=== PATIENT | male | born 1990 | race Caucasian/White ===

== ENCOUNTER 2018-01-21 13:51 | Emergency (ER) | payer BC, SELFPAY ==
[2018-01-21 13:52] VITALS: BP 134/92; PULSE 89; RESP 16; TEMP 36.4; O2SAT 97; BMI 37.5
--- NOTE | 2018-01-21 14:23 | RAD_ITS ---
STUDY: X-RAY CHEST REASON FOR EXAM: Male, 27 years old. Cough TECHNIQUE: Frontal and lateral views of the chest were obtained. COMPARISON: Prior comparison studies are not available for review at this time. FINDINGS: The lungs are adequately aerated. There are no focal airspace opacities. There is no demonstrated pleural abnormality. The cardiac silhouette is normal in size. The mediastinum and hilar regions are unremarkable. Normal visualized pulmonary arteries. Normal visualized aortic arch and descending thoracic aorta. The thoracic spine is unremarkable. The visualized ribs, clavicles, and shoulders are unremarkable. There is no demonstrated abnormality of the visualized upper abdomen. RAD/Chest PA and Lateral IMPRESSION: There is no evidence of focal consolidation or pleural effusion. Electronically Signed: Frannie Hagen MD at 16:09 EST Tel Direct: [phone], Service support ,
--- NOTE | 2018-01-21 15:10 | ED.VISSUMM ---
- ER Visit Summary Date of Service: 01/21/18 Chief Complaint: Cough History of Present Illness: The patient is a 27 M who reports he has a cough that began approximately 1 week ago. It is productive yellow sputum with streaks of blood. He also reports he has nasal congestion and a small amount of blood when he blows his nose. He has had subjective fever, chills, and cold sweats. He has bilateral ear pain that is 3 out of 10 severity. He has a sore throat that is 8 out of 10 in severity. Reports he has had mild shortness of breath and has been wheezing. He is not have an inhaler, but he has had to use an inhaler in the past. He denies any myalgias or headache. Physical Examination: Vitals: Stable. Afebrile. General: Well-nourished and well-developed. Head: Normocephalic atraumatic. HEENT: 1+ tonsillar enlargement bilaterally without exudate. Neck: Supple, no lymphadenopathy. No JVD. Nontender. Cardiovascular: Regular rate and rhythm. No murmurs. Respiratory: No respiratory distress. Clear to auscultation bilaterally. Abdominal: Soft, nontender, nondistended, normal bowel sounds. No guarding, rebound, or peritoneal signs. Back: Nontender. Extremities: Nontender, no edema. Skin: Normal color, no rash. Neurologic: Alert and oriented ?3. Cranial nerves II through XII are intact. Normal strength and sensation. Psych: Normal affect. Test Results: Chest x-ray is normal. Emergency Department Course and Treatment: Patient is resting comfortably. Treatment Plan: He will be discharged with an albuterol MDI and symptomatic care. Instructed to follow-up with his primary care physician 1 week if not improving. Disposition: To home in improved and stable condition. Impression: 1. URI with bronchospasm. 2. Tobacco abuse. This note was generated with [employer] dictation software. It may contain incorrect words, spelling, and punctuation that were not noted in review of the chart prior to signing ED Disposition - Plan for ED Patient: Disposition: Home or Assisted Living Chief Complaint: General Illness Instructions: ED Upper Resp Infec No Abx Tx Prescriptions: Albuterol Inhaler [Ventolin Hfa] 1 - 2 puff INHALATION Q4H PRN PRN #1 inhaler PRN Reason: Wheezing Erythromycin Ophthalmic 1 applic EACH EYE TID #1 opth.tube Referrals: Doctor,Your [STAFF PHYSICIAN] - 1 Week if not improving
[2018-01-21 15:44] VITALS: PULSE 71; RESP 16; O2SAT 97
== END 2018-01-21 15:50 | disposition home or self-care (01) ==
PROVIDERS: Emergency Provider Emergency Medicine
DX: J06.9 Acute upper respiratory infection, unspecified (principal); J98.01 Acute bronchospasm; Z72.0 Tobacco use; Z82.5 Family history of asthma and other chronic lower respiratory diseases
CPT/HCPCS: 71046; 99282

== ENCOUNTER 2018-11-16 14:34 | Emergency (ER) | payer BC, SELFPAY ==
[2018-11-16 14:36] VITALS: BP 147/83; PULSE 93; RESP 16; TEMP 37.2; O2SAT 97; BMI 38.9
[2018-11-16] MEDS: 0.9% Normal Saline 1,000 ML 1000 ML IV (14:40)
--- NOTE | 2018-11-16 15:01 | RAD_ITS ---
STUDY: X-RAY CHEST REASON FOR EXAM: Male, 28 years old. Flu symptoms TECHNIQUE: Frontal and lateral views of the chest. COMPARISON: 01/21/2018. FINDINGS: The lungs are clear and expanded. There is no demonstrated pleural abnormality. Normal size heart. Normal mediastinum and horacio. Normal visualized pulmonary arteries. Normal visualized aortic arch and descending thoracic aorta. Normal visualized thoracic spine. Normal visualized ribs, clavicles, and shoulders. There is no demonstrated abnormality of the visualized soft tissue structures of the upper abdomen. RAD/Chest PA and Lateral IMPRESSION: Normal x-ray examination of the chest. Electronically Signed: Randy Bahena MD at 16:10 EST , Service support ,
--- NOTE | 2018-11-16 15:08 | ED.DCSUM_ITS ---
- ER Visit Summary Date of Service: 11/16/18 Chief Complaint: Fever, cough, nausea, vomiting, diarrhea History of Present Illness: The patient is a 28 M with congestion, cough, body aches, fever, and chills for the past 4 days. Today he reports nausea and vomiting. He has had diarrhea as well. He does have some posttussive emesis, but overall has dry cough. He reports fever up to 101.6 today. Past history is significant for asthma as a child but has not really been an issue as an adult. He has had pneumonia previously. He had his gallbladder out approximately a year ago. Physical Examination: Blood pressure is 147/83, temperature 99, heart rate 93, respiratory rate 16, pulse ox 97% on room air. Patient sitting upright in bed. He appears ill but no acute distress. He is nontoxic appearing. Head neck examination is grossly unremarkable. Heart is regular rate and rhythm. Lungs sounds with rales at the right lung. Abdomen is soft and nontender. Hypoactive bowel sounds are noted throughout. Lower extremity examination was no calf tenderness or edema. Test Results: Two-view chest x-ray is unremarkable. CBC is remarkable only for platelet count of 131,000. Chemistry studies normal. Influenza swab is negative. Emergency Department Course and Treatment: Patient is given IV fluids, Zofran, and Toradol. On repeat evaluation he is improved. He is able to tolerate ice chips at this time without difficulty. He will be given prescriptions for Toradol and Zofran at home. He will follow-up with his primary care physician in [place]. Treatment Plan: [] Disposition: Discharge Impression: Viral syndrome This note was generated with [employer] dictation software. It may contain incorrect words, spelling, and punctuation that were not noted in review of the chart prior to signing ED Disposition - Plan for ED Patient: Chief Complaint: General Illness Referrals: Care Physician,No Primary [Primary Care Provider] -
[2018-11-16 15:16] LABS: Absolute Lymphocyte Count 1.82 X10^3/ul (0.83-4.51); Absolute Neutrophil Count 2.8 X10^3/uL (2.0-7.7); Basophil# 0.05 X10^3/uL; Eosinophil# 0.09 X10^3/uL; Eosinophils% 1.7 % (0-5); Hematocrit 45.9 % (40-54); Hemoglobin 15.7 g/dl (13.0-16.5); Lymphocyte # 1.82 X10^3/ul (4.0); Lymphocyte % 35.3 % (19-41); Mean Corp Hgb Conc 34.2 g/gl (32-36); Mean Corpuscular Hgb 30.2 pg (27.0-32.0); Mean Corpuscular Volume 88.3 fL (80-94); Mean Platelet Vol. 10.3 fl (6.2-12.0); Monocyte% 7.8 % (0-10); Neutrophil # 2.79 X10^3/uL (2.7-7.7); POSITIVE COUNT NO; POSITIVE MORPHOLOGY NO; Platelet Count 131 K/mm3 (150-450); RBC Distribution Width CV 12.2 % (11.6-14.6); White Blood Count 5.2 K/mm3 (4.4-11.0)
[2018-11-16 15:30] LABS: Anion Gap 8 (5-15); BUN 10 mg/dL (7-18); BUN/Creat Ratio 10.8 RATIO (10-20); Calcium,Total 8.6 mg/dL (8.5-10.1); Chloride 102 mmol/L (98-107); Creatinine, Serum 0.92 mg/dL (0.70-1.30); EST Glomerular Filtration Rate 102 mL/min (>60); Est Glom Filt Rate - Afr Amer 123 mL/min (>60); Estimated Creatinine Clearance 140.32 ml/min; Glucose 91 mg/dL (74-106); Potassium 3.8 mmol/L (3.5-5.1); Sodium Level 135 mmol/L (136-145)
[2018-11-16] MEDS: Ondansetron 4 MG/2 ML Vial IV (15:53)
[2018-11-16] MEDS: Ketorolac 30 MG/ML Syringe IV (15:53)
[2018-11-16] MEDS: 0.9% Normal Saline 1,000 ML 150 ML IV (15:53)
--- NOTE | 2018-11-16 17:24 | ED.DEP ---
ED Disposition - Plan for ED Patient: Disposition: Home or Assisted Living Chief Complaint: General Illness Instructions: ED Viral Syndrome Prescriptions: Ondansetron [Zofran Odt] 4 mg PO Q8H PRN PRN #10 tablet PRN Reason: Nausea Ketorolac [Toradol] 10 mg PO Q6H PRN #20 tablet PRN Reason: Pain Additional Instructions: Follow-up with your physician as needed.
[2018-11-16 17:44] VITALS: BP 118/57; PULSE 68; RESP 16
== END 2018-11-16 17:44 | disposition home or self-care (01) ==
PROVIDERS: Emergency Provider Emergency Medicine
DX: B34.9 Viral infection, unspecified (principal); Z72.0 Tobacco use
CPT/HCPCS: 71046; 80048; 85025; 87804; 96361; 96374; 96375; 99283; J7030; A4216; J2405

== ENCOUNTER 2018-11-28 22:27 | Emergency (ER) | payer BC, SELFPAY ==
[2018-11-28 22:28] VITALS: BP 122/98; PULSE 111; RESP 14; TEMP 36.6; O2SAT 95; BMI 38.2
--- NOTE | 2018-11-29 00:25 | RAD_ITS ---
STUDY: X-RAY CHEST REASON FOR EXAM: Male, 28 years old. Cough. Concern for TB. 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 TECHNIQUE: Frontal and lateral views of the chest. COMPARISON: 11/16/2018. FINDINGS: The lungs are clear and expanded. There is no demonstrated pleural abnormality. Normal size heart. Normal mediastinum and horacio. Normal visualized pulmonary arteries. Normal visualized aortic arch and descending thoracic aorta. Normal visualized thoracic spine. Normal visualized ribs, clavicles, and shoulders. There is no demonstrated abnormality of the visualized soft tissue structures of the upper abdomen. RAD/Chest PA and Lateral IMPRESSION: Normal x-ray examination of the chest. No evidence for tuberculosis. Electronically Signed: Alfie Meyer MD at 1:05 EST , Service support ,
[2018-11-29 00:57] VITALS: BP 138/81; PULSE 92; PULSE 94; RESP 14; RESP 18; TEMP 36.6; O2SAT 95; O2SAT 97
[2018-11-29 00:59] VITALS: BP 138/81; PULSE 94; RESP 18; TEMP 36.6; O2SAT 97
--- NOTE | 2018-11-29 01:09 | ED.DCSUM_ITS ---
- ER Visit Summary Date of Service: 11/29/18 Chief Complaint: Cough and I just want to be on the safe side. History of Present Illness: The patient is a 28 M who presents with a cough. It is been present for 3-4 weeks. He did initially have a URI-like illness with congestion. His cough is nonproductive. He reports night sweats. He has had some diarrhea as well. He states I googled and scared myself. He is concerned that he may have tuberculosis. Physical Examination: Heart rate 111 vitals otherwise normal Moist mucous membranes Heart regular rate and rhythm on auscultation Lungs are clear without rales rhonchi or wheezes Abdomen is soft Test Results: Two-view chest x-ray is normal Emergency Department Course and Treatment: Patient was reassured. He was advised to follow-up as an outpatient. He understands to return for new or worsening symptoms. He was discharged. Treatment Plan: [] Disposition: Discharge Impression: Cough This note was generated with [employer] dictation software. It may contain incorrect words, spelling, and punctuation that were not noted in review of the chart prior to signing ED Disposition - Plan for ED Patient: Chief Complaint: General Illness Referrals: Care Physician,No Primary [Primary Care Provider] -
[2018-11-29 01:15] VITALS: BP 129/76; PULSE 92; RESP 18; O2SAT 99
== END 2018-11-29 01:33 | disposition home or self-care (01) ==
PROVIDERS: Emergency Provider Emergency Medicine
DX: R05 Cough (principal); Z72.0 Tobacco use
CPT/HCPCS: 71046; 99282

== ENCOUNTER 2019-09-07 21:25 | Emergency (ER) | payer BC, SELFPAY ==
[2019-09-07 21:26] VITALS: BP 149/111; BP 149/114; PULSE 112; RESP 18; TEMP 37.2; BMI 36.1
--- NOTE | 2019-09-07 22:57 | ED.DCSUM_ITS ---
- ER Visit Summary Date of Service: 09/07/19 Chief Complaint: Laceration right index finger History of Present Illness: The patient is a 29 M who presents with a laceration to the tip of his right index finger that occurred tonight. Patient states he was washing dishes when he reached into the sink and cut himself with a knife. Patient denies any paresthesias or weakness. Patient states the bleeding has been persistent. Patient states his last tetanus was between 5 and 10 years ago. Patient denies any other injuries. Physical Examination: Vital signs are stable except for mild tachycardia of 112. Patient was afebrile. Patient is in no acute distress. Skin is warm dry. There is a 1 cm full-thickness linear laceration over the tip of the right index finger. There is mild gapping of the wound margins. There is moderate bleeding. Sensation was intact to light touch in all digits. Capillary refill was less than 2 seconds in all digits. There is full range of motion of the MP, PIP, and DIP joints without difficulty. Emergency Department Course and Treatment: The right index finger was cleaned and anesthetized 1% plain lidocaine via digital block. The wound was irrigated with copious amounts of normal saline. The wound was closed with 2 simple interrupted #5-0 nylon sutures under sterile technique. Bacitracin dressing was applied. Patient tolerated the procedure well. Patient was instructed to follow-up with his primary care physician in 5 to 7 days for wound recheck and suture removal. Patient understood and was agreeable with the plan. All questions were answered. Disposition: Discharge home Impression: Right index finger laceration This note was generated with [employer] dictation software. It may contain incorrect words, spelling, and punctuation that were not noted in review of the chart prior to signing ED Disposition - Plan for ED Patient: Disposition: Home or Assisted Living Diagnosis: Laceration of right index finger Instructions: LACERATION, Hand Referrals: Care Physician,No Primary [Primary Care Provider] - Lit Drake DO [NON CLINICAL AFFILIATE] - 5 Days for suture removal
[2019-09-07] MEDS: BACITRACIN 15 GM Tube 1 APPLIC TOPICAL (23:27)
[2019-09-07 23:37] VITALS: BP 134/62; PULSE 92; RESP 18; O2SAT 96
== END 2019-09-07 23:37 | disposition home or self-care (01) ==
PROVIDERS: Emergency Provider Emergency Medicine
DX: S61.210A Laceration without foreign body of right index finger without damage to nail, initial encounter (principal); W26.0XXA Contact with knife, initial encounter; Y93.G1 Activity, food preparation and clean up; Z72.0 Tobacco use
CPT/HCPCS: 12001; 99283

== ENCOUNTER 2019-12-24 21:53 | Emergency (ER) | payer BC, SELFPAY ==
[2019-12-24 21:54] VITALS: BP 134/84; PULSE 100; RESP 18; TEMP 37; O2SAT 98; BMI 38.1
[2019-12-24] MEDS: Morphine 4 MG/ML Syringe IV (22:21)
[2019-12-24] MEDS: Ondansetron 4 MG/2 ML Vial IV (22:21)
[2019-12-24] MEDS: 0.9% Normal Saline 1,000 ML 1000 ML IV (22:21)
[2019-12-24 22:36] LABS: Absolute Lymphocyte Count 2.04 X10^3/uL (0.83-4.51); Absolute Neutrophil Count 8.3 X10^3/uL (2.0-7.7); Basophil# 0.05 X10^3/uL; Basophil% 0.4 % (0-1); Eosinophil# 0.22 X10^3/uL; Eosinophils% 1.9 % (0-5); Hematocrit 46.9 % (40-54); Hemoglobin 16.2 g/dL (13.0-16.5); Lymphocyte # 2.04 X10^3/ul (4.0); Lymphocyte % 17.9 % (19-41); Mean Corp Hgb Conc 34.5 g/dL (32-36); Mean Corpuscular Volume 89.7 fL (80-94); Mean Platelet Vol. 9.6 fl (6.2-12.0); Monocyte# 0.72 X10^3/uL; Monocyte% 6.3 % (0-10); NRBC Flagged by Analyzer 0 % (0-5); Neutrophil # 8.28 X10^3/uL (2.7-7.7); Platelet Count 238 K/mm3 (150-450); RBC Distribution Width CV 11.9 % (11.6-14.6); RBC Distribution Width SD 39.1 fl (35.1-43.9); Red Blood Count 5.23 M/mm3 (4.6-6.2); White Blood Count 11.4 K/mm3 (4.4-11.0)
[2019-12-24 22:49] LABS: Anion Gap 8 (5-15); BUN 15 mg/dL (7-18); BUN/Creat Ratio 16.2 RATIO (10-20); Calcium,Total 9.1 mg/dL (8.5-10.1); Chloride 108 mmol/L (98-107); Creatinine, Serum 0.92 mg/dL (0.70-1.30); EST Glomerular Filtration Rate 101 mL/min (>60); Est Glom Filt Rate - Afr Amer 122 mL/min (>60); Estimated Creatinine Clearance 142.83 ml/min; Glucose 81 mg/dL (74-106); Potassium 3.7 mmol/L (3.5-5.1); Sodium Level 140 mmol/L (136-145)
--- NOTE | 2019-12-24 23:20 | ED.DCSUM_ITS ---
- ER Visit Summary Date of Service: 12/24/19 Chief Complaint: Diarrhea History of Present Illness: The patient is a 29 M with no primary care physician. Reports he has diarrhea that began 430 this afternoon. He had had 5 episodes when he took Pepto-Bismol. Reports that the next 2 stools were maroon-colored. He states that he has cramping diffuse abdominal pain and stated 10 at worst and 6 out of 10 currently. Is worsened by movement or standing up. Is relieved by remaining still pretty is been nausea and vomited once. No blood in his emesis. No dysuria or frequency. Patient denies sick contacts. Has not been camping out of the country. No possible bad food exposure. Does not drink well water. No recent antibiotic use. No family history of Crohn's or ulcerative colitis. Physical Examination: Vitals: Stable. Afebrile. General: Well-nourished and well-developed. Head: Normocephalic atraumatic. Neck: Supple, no lymphadenopathy. No JVD. Nontender. Cardiovascular: Regular rate and rhythm. No murmurs. Respiratory: No respiratory distress. Clear to auscultation bilaterally. Abdominal: Soft, nontender, nondistended, normal bowel sounds. No guarding, rebound, or peritoneal signs. Back: Nontender. Extremities: Nontender, no edema. Skin: Normal color, no rash. Neurologic: Alert and oriented ?3. Cranial nerves II through XII are intact. Normal strength and sensation. Psych: Normal affect. Test Results: CBC is marked for a white count of 11.4, 7 neutrophils 73, lymphocytes of 18. Hemoglobin is normal. Chem-7 shows a chloride of 108. Emergency Department Course and Treatment: Patient was given a dose of morphine and Zofran IV. He is resting comfortably. He is had no further diarrhea while here. He refused a rectal exam for Hemoccult. Treatment Plan: Patient will be discharged instructions to push fluids. Is given Zofran for nausea peer instructed to follow-up the [facility] in 1 to 2 days if not improving. I suspect that the discoloration in his stool was from the Pepto-Bismol. Return to the emergency department for any worsening symptoms. Disposition: To home in improved and stable condition. Impression: 1. Vomiting/diarrhea. This note was generated with [employer] dictation software. It may contain incorrect words, spelling, and punctuation that were not noted in review of the chart p rior to signing ED Disposition - Plan for ED Patient: Instructions: VOMITING AND DIARRHEA, Nonspecific (Adult) Prescriptions: Ondansetron [Zofran Odt] 4 mg PO Q8H PRN PRN #10 tablet PRN Reason: Nausea Referrals: Brittany Jenkins [NON-STAFF] - 1-2 Days if not improving
[2019-12-24 23:35] VITALS: RESP 16
== END 2019-12-24 23:35 | disposition home or self-care (01) ==
LOC: ED 22:29
PROVIDERS: Emergency Provider Emergency Medicine
DX: R19.7 Diarrhea, unspecified (principal); R11.2 Nausea with vomiting, unspecified; Z90.49 Acquired absence of other specified parts of digestive tract; Z72.0 Tobacco use
CPT/HCPCS: 80048; 85025; 96361; 96374; 96375; 99283; J7030; J2405

== ENCOUNTER 2019-12-25 19:32 | Emergency (ER) | payer BC, SELFPAY ==
[2019-12-24 21:54] VITALS: BMI 38.1
[2019-12-25 19:33] VITALS: BP 154/88; PULSE 81; RESP 18; TEMP 36.7; O2SAT 99; BMI 38.6
[2019-12-25 20:28] LABS: Bacteria 0 SEEN /hpf (None Seen); Mucous, Urine 0 SEEN /hpf (<or=2+); Red Blood Cells-Urine 0 SEEN /hpf (0-5); Squamous Epithelial Cells - UA 0 SEEN /hpf (0-5); White Blood Cells 0 SEEN /hpf (0-5)
[2019-12-25 20:39] LABS: Color, Urine Yellow (Yellow); Glucose, Dipstick Normal (Normal); Ketone-Dipstick Negative (Negative); Leukocyte Esterase-Dipstick Negative /ul (Negative); Nitrite-Dipstick Negative (Negative); Occult Blood-Urine Negative /ul (Negative); Protein-Dipstick Negative (Negative); Urine Bilirubin Dipstick Negative (Negative); Urine Clarity Clear (Clear); Urine Urobilinogen Normal (Normal); Urine pH 6.5 (5.0 - 8.0)
[2019-12-25 22:00] LABS: Absolute Lymphocyte Count 2.15 X10^3/uL (0.83-4.51); Absolute Neutrophil Count 3.9 X10^3/uL (2.0-7.7); Basophil# 0.02 X10^3/uL; Basophil% 0.3 % (0-1); Eosinophil# 0.32 X10^3/uL; Eosinophils% 4.5 % (0-5); Hematocrit 44.5 % (40-54); Lymphocyte # 2.15 X10^3/ul (4.0); Lymphocyte % 30.1 % (19-41); Mean Corp Hgb Conc 33.7 g/dL (32-36); Mean Corpuscular Hgb 30.9 pg (27.0-32.0); Mean Corpuscular Volume 91.6 fL (80-94); Mean Platelet Vol. 9.7 fl (6.2-12.0); Monocyte# 0.71 X10^3/uL; Monocyte% 9.9 % (0-10); NRBC Flagged by Analyzer 0 % (0-5); Neutrophil # 3.91 X10^3/uL (2.7-7.7); Neutrophil % 54.6 % (47-70); Platelet Count 205 K/mm3 (150-450); RBC Distribution Width CV 12.1 % (11.6-14.6); RBC Distribution Width SD 40.4 fl (35.1-43.9); Red Blood Count 4.86 M/mm3 (4.6-6.2); White Blood Count 7.2 K/mm3 (4.4-11.0)
[2019-12-25 22:15] LABS: Anion Gap 2 (5-15); BUN 11 mg/dL (7-18); BUN/Creat Ratio 12.5 RATIO (10-20); Calcium,Total 8.8 mg/dL (8.5-10.1); Chloride 106 mmol/L (98-107); Creatinine, Serum 0.88 mg/dL (0.70-1.30); EST Glomerular Filtration Rate 107 mL/min (>60); Est Glom Filt Rate - Afr Amer 130 mL/min (>60); Estimated Creatinine Clearance 149.32 ml/min; Glucose 89 mg/dL (74-106); Potassium 3.8 mmol/L (3.5-5.1); Sodium Level 138 mmol/L (136-145)
--- NOTE | 2019-12-25 22:19 | ED.DCSUM_ITS ---
History of Present Illness Chief Complaint: Abd Pain Informant: Patient Onset: Today - She presents because of right-sided abdominal and flank pain that started today. This is the reason he presents. He is scheduled to see a high frequency mill operator tomorrow at the [facility] Yesterday - Seen yesterday for bloody diarrhea. Dr. Charles Branch's H&P was read. Context: Sudden Onset Timing: Continuous Quality: Crampy pain Location: Right flank and right side of the abdomen Current Severity: Mild Maximum Severity: Moderate Worsened by: Nothing specific Relieved by: Nothing Associated Symptoms: Bloody diarrhea Narrative: This 29-year-old male has history of diarrhea that alternates with constipation. He is noted blood in his stool. He had pictures and appears to be blood mixed in the stool. He did not allow Dr. Branch to perform rectal exam x-ray. His work-up yesterday was unremarkable. The main reason for returning is the pain which he did not experience yesterday. He denies fever, chills night sweats. He denies weight gain or weight loss. He denies vomiting. He denies bruising easily. He is on no anticoagulant. He has no other complaints. Prior similar symptoms: Yes Recent Illness/Hospitalization: Yes - Past Medical History (1) No significant past medical history Status: Acute Past Medical History - Allergies and Home Meds Allergies/Adverse Reactions: Allergies No Known Allergies Allergy (Verified 12/25/19 19:36) Primary Care Physician: Care Physician,No Primary [Primary Care Provider] - Prior records reviewed: Yes Surgical History: no surgical history Lives: Spouse/ Significant Other Smoking Status: Current every day smoker Alcohol: Rare Drugs: None Review of Systems General: Denies: Chills, Fever, Malaise, Sweats, Weight loss Eyes: Denies: Visual changes - bilaterally, Blurred Vision - bilaterally ENT: Denies: Bilateral ear pain, Rhinorrhea, Sore throat Cardiovascular: Denies: Chest pain, Palpitations Respiratory: Denies: Dyspnea, Cough, Dyspnea on exertion Gastrointestinal: Reports: Abdominal pain, Hematochezia. Denies: Nausea, Vomiting, Diarrhea, Constipation, Melena, -, - Genitourinary: Denies: Dysuria, Hematuria, Frequency Musculoskeletal: Denies: Back pain, Extremity Pain Skin: Denies: Rash, Wounds Neurological: Denies: Headache, Weakness, Numbness Hematologic: Denies: Easy bruising, Easy bleeding Allergy: Denies: Uticaria Physical Exam Vital Signs/Narrative: Vital Signs Temp Pulse Resp BP Pulse Ox 12/25/19 19:33 98.1 F 81 18 154/88 H 99 Inital Vital Signs reviewed: Yes General: Well nourished, Well developed, Obese, No Acute Distress Head: Normocephalic, Atraumatic Eyes: Perrl, EOMI ENT: Moist mucous membranes, No rhinorrhea Neck: Supple, Nontender Cardiovascular: Regular rate, Regular rhythm, No murmurs Respiratory: No distress, CTA bilaterally, Chest nontender Abdomen: Soft, Nontender, Nondistended, Normal bowel sounds Rectal: Guaiac negative Back: Nontender, Normal Inspection. Negative for: CVA tenderness Extremities: Nontender, No edema Skin: Normal color, No rash Neurological: Alert, Oriented x3, Cranial nerves II-XII grossly intact, Normal Strength, Normal Sensation Psychological: Normal affect, Normal Mood Diagnostic/Tx/Re-eval 12/25/19 20:58 Stool Stool Occult Blood (SHAUNA) - Final Laboratory Results 12/25/19 12/25/19 12/25/19 20:19 21:00 21:00 WBC 7.2 RBC 4.86 Hgb 15.0 Hct 44.5 MCV 91.6 MCH 30.9 MCHC 33.7 RDW Std Deviation 40.4 RDW Coeff of Claudia 12.1 Plt Count 205 MPV 9.7 Immature Gran % (Auto) 0.600 Neut % (Auto) 54.6 Lymph % (Auto) 30.1 Clare % (Auto) 9.9 Eos % (Auto) 4.5 Baso % (Auto) 0.3 Absolute Neuts (auto) 3.9 Absolute Lymphs (auto) 2.15 Nucleated RBC % 0 Sodium 138 Potassium 3.8 Chloride 106 Carbon Dioxide 30.0 Anion Gap 2 L BUN 11 Creatinine 0.88 Estim Creat Clear Calc 149.32 Est GFR (MDRD) Af Amer 130 Est GFR (MDRD) Non-Af 107 BUN/Creatinine Ratio 12.5 Glucose 89 Calcium 8.8 Urine Color Yellow Urine Clarity Clear Urine pH 6.5 Ur Specific [place] 1.010 Urine Protein Negative Urine Glucose (UA) Normal Urine Ketones Negative Urine Occult Blood Negative Urine Nitrite Negative Urine Bilirubin Negative Urine Urobilinogen Normal Ur Leukocyte Esterase Negative Urine RBC 0 SEEN Urine WBC 0 SEEN Ur Squamous Epith Cells 0 SEEN Urine Bacteria 0 SEEN Urine Mucus 0 SEEN There is no change in H&H. BUN to creatinine ratio is not elevated. Urine was obtained per nursing staff and is negative. Stool for Hemoccult blood was negative. There was red material noted. This probably does not represent blood. - Medical Decision Making Work was repeated and compared to prior. Stool was sent for Hemoccult testing. ED Disposition - Plan for ED Patient: Disposition: Home or Assisted Living Diagnosis: Right-sided abdominal pain of unknown cause Instructions: ABDOMINAL PAIN, Unkown Cause, (Male) Referrals: Care Physician,No Primary [Primary Care Provider] - Additional Instructions: Keep your appointment with high frequency mill operator scheduled for tomorrow.
[2019-12-25 23:32] VITALS: BP 150/102; PULSE 65; RESP 16; O2SAT 98
== END 2019-12-25 23:35 | disposition home or self-care (01) ==
PROVIDERS: Emergency Provider Emergency Medicine
DX: R10.9 Unspecified abdominal pain (principal); F17.200 Nicotine dependence, unspecified, uncomplicated
CPT/HCPCS: 80048; 81001; 82274; 85025; 99283; A4216

== ENCOUNTER 2021-05-02 15:12 | Emergency (ER) | payer BC, MEDICAID, SELFPAY ==
[2021-05-02 15:13] VITALS: BP 157/92; PULSE 76; RESP 18; TEMP 36.6; O2SAT 96; BMI 40.5
--- NOTE | 2021-05-02 15:22 | EX.ED.UPPERE ---
HPI History of Present Illness Chief Complaint: Upper Extremity Injury Informant: patient and spouse/S.O. Occured/Mechanism Comment: Crush injury Onset/Context/Timing Onset: Days (2 days ago) Context: Gradual Onset Quality of Pain: Throbbing Current Severity: Moderate Maximum Severity: Moderate Narrative Narrative: Patient presents with crush injury to the left third finger that occurred 2 days ago while he was moving a dryer. He is right-hand dominant. Denies paresthesias. PFSH PFSH no medical history Home Medications ondansetron 4 mg PO Q8H PRN PRN #10 tab 12/24/19 [Rx Last Taken Unknown] naproxen [Naprosyn] 500 mg PO BID PRN #20 tab 05/02/21 [Rx Last Taken Unknown] Allergy/AdvReac Type Severity Reaction Status Date / Time No Known Allergies Allergy Verified 05/02/21 15:14 Social History Smoking Status: Current every day smoker tobacco type: cigarettes ROS ROS ED Constitutional Constitutional ED: Denies chills or fever(s) Eyes Eyes: Denies change in vision ENT ENT ED: Denies sore throat Cardiovascular Cardiovascular: Denies chest pain Respiratory/Chest Respiratory/Chest: Denies cough or dyspnea Gastrointestinal Gastrointestinal: Denies abdominal pain, diarrhea, nausea or vomiting Genitourinary Genitourinary ED: Denies dysuria Musculoskeletal Musculoskeletal: Reports myalgias; Denies back pain Integumentary Denies rash Neurologic Neurologic: Denies headache(s) or weakness Psychiatric Psychiatric: Denies anxiety or depression Endocrine Endocrinology: Denies polydipsia or polyuria Allergic/Immunologic Allergic/Immunologic ED: Denies urticaria EXAM Physical Exam Const Vital Signs: 05/02/21 15:13 Temperature 97.8 F Temperature Source Temporal Pulse Rate 76 Respiratory Rate 18 Blood Pressure 157/92 H Blood Pressure Mean 113 Pulse Ox 96 Oxygen Delivery Method Room Air Positive well nourished and well developed General Appearance ED: well developed HEENT normocephalic and atraumatic Eyes PERRL and EOMs intact bilaterally Neck supple Chest Wall inspection of chest normal and palpation of chest normal Resp normal respiratory effort and clear to auscultation bilaterally Cardio regular rate and regular rhythm GI non-tender Palpation: soft Extremity Extremity Narrative: Tenderness palpation of mild edema to the distal acid of the left third finger. Subungual hematoma is noted. Full range of motion of the joint with good cap refill and sensation distally. Neuro oriented x3 and no sensory deficits noted Sensorium / Orientation: alert Motor Exam: strength 5/5 throughout Psych mental status grossly normal Skin Rashes: no rashes MDM MDM MDM Narrative Medical decision making narrative: Patient given naproxen for pain. Left third finger x-rays obtained. Treatment and Re-Evaluation Comments:: Per my interpretation no acute bony injury. Because the injury is already on day 3 I do not think trephination will likely be beneficial as the blood is already clotted. Patient be placed in AlumaFoam splint to help protect his finger so is not hitting it against things. Will be written a prescription for naproxen. He is referred to orthopedics if not improving. Discharge Plan Triage Chief Complaint: Upper Extremity Injury ED Provider: Frannie Montague Dx/Rx/DC Orders Clinical Impression: Crush injury to finger Instructions: ED Crush Injury, Hand Prescriptions: New naproxen [Naprosyn] 500 mg tablet 500 mg PO BID PRN (Reason: pain) Qty: 20 RF: 0 No Action ondansetron 4 MG tablet 4 mg PO Q8H PRN PRN (Reason: Nausea) Qty: 10 RF: 0 Primary Care Provider: Care Physician,No Primary Referrals: Liban Morin DO [STAFF PHYSICIAN] - As Needed Care Physician,No Primary [Primary Care Provider] - Disposition Disposition: Home, self care
[2021-05-02] MEDS: Naproxen 500 MG Tablet PO (15:33)
--- NOTE | 2021-05-02 15:35 | RAD_ITS ---
HISTORY: Trauma, third digit injury EXAMINATION/TECHNIQUE: XR Fingers Min 2 Views: COMPARISON: None FINDINGS: BONES/JOINTS: No acute fracture or dislocation. Preservation of the joint spaces. No sclerotic or destructive changes observed. SOFT TISSUES: Mild soft tissue swelling over the dorsum of the distal phalanx. No radiopaque foreign body. RAD/Finger(s) Min 2 Views IMPRESSION: No acute bony abnormality. at 1550 Reported and signed by: Gregorio Yeboah MD Electronically Signed: Gregorio Yeboah MD at 15:49 EDT Tel , Service support ,
== END 2021-05-02 16:17 | disposition home or self-care (01) ==
PROVIDERS: Emergency Provider Emergency Medicine
DX: S67.193A Crushing injury of left middle finger, initial encounter (principal); F17.210 Nicotine dependence, cigarettes, uncomplicated; X58.XXXA Exposure to other specified factors, initial encounter
CPT/HCPCS: 73140; 99282

== ENCOUNTER 2021-06-02 00:55 | Emergency (ER) | payer BC, MEDICAID, SELFPAY ==
[2021-06-02 00:56] VITALS: BP 151/100; PULSE 104; RESP 16; TEMP 36.9; O2SAT 98; BMI 39.4
--- NOTE | 2021-06-02 01:11 | CT_ITS ---
STUDY: CT ABDOMEN AND PELVIS WITHOUT CONTRAST REASON FOR EXAM: Male, 30 years old. Kidney Stone RADIATION DOSAGE (If Supplied By Facility): CTDIvol = ( 23.87 ) mGy, DLP = ( 1252.24 ) mGycm TECHNIQUE: Transaxial images were obtained from the dome of the diaphragm to the symphysis pubis without oral contrast, and without intravenous contrast. Sagittal and coronal images were reconstructed. Individualized dose optimization techniques were used for this CT. COMPARISON: None. FINDINGS: The visualized lung bases are unremarkable. The visualized portions of the heart are within normal limits. Normal liver. There is non-visualization of the gallbladder, which may be secondary to either contraction or a prior cholecystectomy. Normal spleen. Normal pancreas. Normal bilateral adrenal glands. Normal right kidney. Normal left kidney. Normal visualized stomach. Normal small intestine. Normal colon. The appendix is visualized and appears normal. Normal abdominal aorta. Normal inferior vena cava. Normal retroperitoneum. Normal urinary bladder. Unremarkable prostate Normal abdominal wall. Normal osseous structures. CT/Abdomen/Pelvis without Cont IMPRESSION: Normal unenhanced CT of the abdomen and pelvis. Electronically Signed: Anish Zamora DO at 2:14 EDT Tel , Service support ,
[2021-06-02 02:34] LABS: Squamous Epithelial Cells - UA 0 SEEN /hpf (0-5)
[2021-06-02 02:35] LABS: Color, Urine Yellow (Yellow); Glucose, Dipstick Normal (Normal); Ketone-Dipstick 5 mg/dl (Negative); Leukocyte Esterase-Dipstick 25 /ul (Negative); Nitrite-Dipstick Negative (Negative); Occult Blood-Urine Negative /ul (Negative); Protein-Dipstick 30 mg/dl (Negative); Urine Bilirubin Dipstick Negative (Negative); Urine Clarity Clear (Clear); Urine Urobilinogen 1 mg/dl (Normal)
[2021-06-02 02:52] LABS: Bacteria 1+ /hpf (None Seen); Mucous, Urine 3+ /hpf (<or=2+); Red Blood Cells-Urine 0-5 SEEN /hpf (0-5); White Blood Cells 0-5 SEEN /hpf (0-5)
[2021-06-02 03:01] VITALS: RESP 16
--- NOTE | 2021-06-02 03:01 | ED.VIS.GI ---
HPI HPI - GI History of Present Illness Chief Complaint: Flank Pain Narrative Narrative: Patient presenting for evaluation secondary to back pain. Patient states that around 2 weeks ago he moved. He reports that he was carrying a large amount of heavy materials. He states that he did not initially have any back pain, but over the course of maybe the last week he has developed some right lower back pain. He states that specifically is worse with change in position and movement. He states that it is very much worse with heavy lifting. No real radiation to the abdomen. No radiation down legs. No bowel or bladder incontinence numbness weakness fevers chills night sweats or unintended weight loss. Denies any urinary signs or symptoms. He is status post cholecystectomy. Patient states that he was concerned about the possibility of appendicitis. He denies any other associated signs or symptoms, he is never really had any similar presentations in the past. Review of systems otherwise negative. [facility] Medical History Cholecystectomy planned Home Medications cyclobenzaprine 10 mg PO TID PRN #20 tablet 06/02/21 [Rx Last Taken Unknown] naproxen 500 mg PO BID PRN #20 tab 06/02/21 [Rx Last Taken Unknown] Allergy/AdvReac Type Severity Reaction Status Date / Time No Known Allergies Allergy Verified 06/02/21 01:00 Social History Smoking Status: Current every day smoker tobacco type: cigarettes ROS ROS ED Constitutional Constitutional ED: Denies chills or fever(s) ENT ENT ED: Denies sore throat Cardiovascular Cardiovascular: Denies chest pain Respiratory/Chest Respiratory/Chest: Denies cough or dyspnea Gastrointestinal Gastrointestinal: Denies abdominal pain, constipation, diarrhea or nausea Genitourinary Genitourinary ED: Denies dysuria, hematuria or urinary frequency Musculoskeletal Musculoskeletal: Reports back pain Integumentary Denies rash Neurologic Neurologic: Denies paresthesias or weakness Psychiatric Psychiatric: Denies depression Endocrine Endocrinology: Denies polyuria Hematologic/Lymphatic Hematologic/Lymphatic: Denies easy bleeding or easy bruising Allergic/Immunologic Allergic/Immunologic ED: Denies urticaria EXAM Physical Exam Const Vital Signs: 06/02/21 00:56 Temperature 98.5 F Temperature Source Oral Pulse Rate 104 H Respiratory Rate 16 Blood Pressure 151/100 H Blood Pressure Mean 117 Pulse Ox 98 Oxygen Delivery Method Room Air Positive well nourished and well developed General Appearance ED: well developed and NAD HEENT normocephalic and atraumatic Eyes EOMs intact bilaterally General Eye ED: Negative for pale conjunctiva or scleral icterus Neck no lymphadenopathy and supple Resp normal respiratory effort and clear to auscultation bilaterally Cardio regular rate, regular rhythm, no murmurs and peripheral pulses 2+ throughout GI non-tender, non-distended and no masses Palpation: soft; Negative for guarding, rigid or rebound tenderness present Back/Spine no CVA tenderness Back/Spine Narrative: Patient complains of pain over basically his right flank area but this is not reproducible on palpation it is somewhat reproducible on movement and change in position. Extremity full ROM General Extremety ED: Negative for edema General Extremity: Negative for edema Neuro moves all extremities and no sensory deficits noted Sensorium / Orientation: alert, oriented to person, oriented to place and oriented to time Motor Exam: strength 5/5 throughout Psych mental status grossly normal Skin Rashes: no rashes MDM MDM MDM Narrative Medical decision making narrative: Patient presented secondary to flank pain. CT imaging was performed to rule out the possibility of kidney stone this was found to be negative. Urinalysis does not show any evidence of white or red blood cells but does show a mild amount of bacteria +1. This will be cultured but not treated. Patient's presentation at this point really seems more consistent with a musculoskeletal type back pain. Patient be treated with a course of Naprosyn Flexeril. Patient was discharged in stable condition. Lab Data Labs: Laboratory Results - last 24 hr 06/02/21 01:50 Urine Color Yellow Urine Clarity Clear Urine pH 5.0 Ur Specific [place] 1.030 Urine Protein 30 H Urine Glucose (UA) Normal Urine Ketones 5 H Urine Occult Blood Negative Urine Nitrite Negative Urine Bilirubin Negative Urine Urobilinogen 1 H Ur Leukocyte Esterase 25 H Urine RBC 0-5 SEEN Urine WBC 0-5 SEEN Ur Squamous Epith Cells 0 SEEN Urine Bacteria 1+ Urine Mucus 3+ Radiography Diagnostic Testing: Radiology Impression Abdomen/Pelvis CT 06/02/21 01:11 IMPRESSION: Normal unenhanced CT of the abdomen and pelvis. Electronically Signed: Anish Zamora DO at 2:14 EDT Tel , Service support , Discharge Plan Triage Chief Complaint: Flank Pain Other Complaint: Abd Pain ED Provider: Liban Flood Dx/Rx/DC Orders Clinical Impression: Back strain Instructions: ED Back Sprain/Strain Prescriptions: New naproxen 500 mg tablet 500 mg PO BID PRN Qty: 20 RF: 0 cyclobenzaprine 10 mg tablet 10 mg PO TID PRN (Reason: Muscle Spasm) Qty: 20 RF: 0 Primary Care Provider: Care Physician,No Primary Referrals: Care Physician,No Primary [Primary Care Provider] - Activity Restrictions/Additional Instructions: Follow-up with your primary care physician as needed Disposition Disposition: Home, Self Care
== END 2021-06-02 03:06 | disposition home or self-care (01) ==
PROVIDERS: Emergency Provider Emergency Medicine
DX: S39.012A Strain of muscle, fascia and tendon of lower back, initial encounter (principal); F17.210 Nicotine dependence, cigarettes, uncomplicated; X58.XXXA Exposure to other specified factors, initial encounter; Z90.49 Acquired absence of other specified parts of digestive tract
CPT/HCPCS: 74176; 81001; 87077; 87086; 87088; 99282; A4216

== ENCOUNTER 2021-07-20 11:26 | Emergency (ER) | payer BC, MEDICAID, SELFPAY ==
[2021-07-20 11:27] VITALS: BP 140/78; PULSE 94; RESP 18; TEMP 36.9; O2SAT 97; BMI 41.3
--- NOTE | 2021-07-20 11:46 | RAD_ITS ---
STUDY: X-RAY LEFT FOOT, GREAT TOE REASON FOR EXAM: Male, 31 years old. Deformity -- ed waiting room, left great toe TECHNIQUE: 3 view(s) of the toe were obtained. COMPARISON: None. FINDINGS: Small well-defined lucencies seen in the distal portion of the first metatarsal most likely secondary to small cysts. There is arthrosis of the metatarsophalangeal (M.T.P.) joint. Normal interphalangeal joints. Normal phalanges and interphalangeal joints. Soft tissue swelling. RAD/Toe(s) Min 2 Views IMPRESSION: Hallux valgus deformity. Electronically Signed: Kyle Guillen MD at 12:24 EDT , Service support ,
--- NOTE | 2021-07-20 12:32 | ED.VIS.LOWEX ---
HPI History of Present Illness Chief Complaint: Lower Extremity Injury Informant: patient Narrative Narrative: 31-year-old male presents to the emergency room with a left great toe injury. Patient states that he was in the garage when a large metal shelf fell down onto his toe. He notes significant bruising and pain. Denies any other injuries [facility] Medical History Cholecystectomy planned Home Medications cyclobenzaprine 10 mg PO TID PRN #20 tablet 06/02/21 [Rx Last Taken Unknown] naproxen 500 mg PO BID PRN #20 tab 06/02/21 [Rx Last Taken Unknown] Allergy/AdvReac Type Severity Reaction Status Date / Time No Known Allergies Allergy Verified 06/02/21 01:00 Social History (Updated 07/20/21 @ 12:[address] Ayad York DO) Smoking Status: Current every day smoker tobacco type: cigarettes substance use type: does not use ROS ROS ED Constitutional Constitutional ED: Denies chills or weight loss Eyes Eyes: Denies change in vision or diplopia ENT ENT ED: Denies ear pain, rhinorrhea or sore throat Cardiovascular Cardiovascular: Denies chest pain, orthopnea, palpitations or racing heartbeat Respiratory/Chest Respiratory/Chest: Denies cough, dyspnea or orthopnea Gastrointestinal Gastrointestinal: Denies abdominal pain, diarrhea, nausea or vomiting Genitourinary Genitourinary ED: Denies dysuria, hematuria or urinary frequency Musculoskeletal Musculoskeletal: Denies arthralgias or myalgias Integumentary Denies abscess or rash Neurologic Neurologic: Denies headache(s) or weakness Psychiatric Psychiatric: Denies anxiety, depression, suicidal ideation or suicidal thoughts Endocrine Endocrinology: Denies polydipsia, polyphagia or polyuria Allergic/Immunologic Allergic/Immunologic ED: Denies mouth swelling, tongue swelling or urticaria EXAM Physical Exam Const Vital Signs: 07/20/21 11:27 Temperature 98.5 F Temperature Source Temporal Pulse Rate 94 Respiratory Rate 18 Blood Pressure 140/78 H Blood Pressure Mean 98 Pulse Ox 97 Oxygen Delivery Method Room Air Positive well nourished and well developed General Appearance ED: well developed HEENT Reports normocephalic, head/scalp atraumatic and moist mucous membranes Eyes PERRL and EOMs intact bilaterally Neck no lymphadenopathy, supple and no JVD Resp normal respiratory effort and clear to auscultation bilaterally Cardio regular rate, regular rhythm and no murmurs GI normal to inspection, nondistended, normoactive bowel sounds and non-tender Palpation: soft Back/Spine no CVA tenderness and normal ROM Extremity Extremity Narrative: Patient has an obvious bunion. There is significant ecchymosis over the dorsum of the left great toe. No toenail injury. There is no ecchymosis over the plantar surface. General Extremety ED: Negative for edema General Extremity: Negative for edema Neuro oriented x3 and CN's II-XII intact bilaterally Sensorium / Orientation: alert Motor Exam: strength 5/5 throughout Psych mental status grossly normal Mood & Affect: Negative for depressed or tearful Skin no rashes or lesions noted and no wounds MDM MDM MDM Narrative Medical decision making narrative: My interpretation of the plain films of the left great toe is no acute fracture. Patient will be discharged home with supportive care instructions to follow-up with podiatry to discuss bunion surgeries. Radiography Diagnostic Testing: Radiology Impression Toe X-Ray 07/20/21 11:46 IMPRESSION: Hallux valgus deformity. Electronically Signed: Kyle Guillen MD at 12:24 EDT , Service support , Discharge Plan Triage Chief Complaint: Lower Extremity Injury ED Provider: Ayad York Dx/Rx/DC Orders Clinical Impression: Crushing injury of toe, left Instructions: ED Crush Injury, Foot/Toe Prescriptions: No Action naproxen 500 mg tablet 500 mg PO BID PRN Qty: 20 RF: 0 cyclobenzaprine 10 mg tablet 10 mg PO TID PRN (Reason: Muscle Spasm) Qty: 20 RF: 0 Primary Care Provider: Care Physician,No Primary Referrals: Thomas Rapp DPM [STAFF PHYSICIAN] - As Needed (For podiatry) Care Physician,No Primary [Primary Care Provider] - Disposition Disposition: Home, Self Care
== END 2021-07-20 12:58 | disposition home or self-care (01) ==
LOC: ED 12:54
PROVIDERS: Emergency Provider Emergency Medicine
DX: S97.112A Crushing injury of left great toe, initial encounter (principal); W20.8XXA Other cause of strike by thrown, projected or falling object, initial encounter; Y93.9 Activity, unspecified; Y92.59 Other trade areas as the place of occurrence of the external cause; Y99.9 Unspecified external cause status; F17.210 Nicotine dependence, cigarettes, uncomplicated
CPT/HCPCS: 73660; 99282

== ENCOUNTER 2021-11-21 19:03 | Emergency (ER) | payer BC, MEDICAID, SELFPAY ==
[2021-11-21 19:04] VITALS: BP 124/109; PULSE 74; RESP 18; TEMP 36.6; O2SAT 98; BMI 39.9
--- NOTE | 2021-11-21 19:30 | RAD_ITS ---
STUDY: X-RAY CHEST REASON FOR EXAM: Male, 31 years old. Cough TECHNIQUE: Single AP portable view of the chest. COMPARISON: 11/29/2018 FINDINGS: The lungs are clear and expanded. There is no demonstrated pleural abnormality. Normal size heart. Normal mediastinum and horacio. Normal visualized pulmonary arteries. Normal visualized aortic arch and descending thoracic aorta. Normal visualized thoracic spine. Normal visualized ribs, clavicles, and shoulders. There is no demonstrated abnormality of the visualized soft tissue structures of the upper abdomen. RAD/Chest 1 View (Portable) IMPRESSION: Normal x-ray examination of the chest. Electronically Signed: Hermes Gonzalez MD at 20:37 EST , Service support ,
--- NOTE | 2021-11-21 19:35 | EDS_ITS ---
HPI History of Present Illness Chief Complaint: General Illness Detail of Chief Complaint: Cough. Informant: patient Onset/Context/Timing Onset: Today and Yesterday Context: Gradual Onset Timing: Continuous Current Severity: Mild Maximum Severity: Mild Narrative Narrative: 31-year-old male no seen past medical history of prior cholecystectomy. Patient states the last 2 days has had a cough and congestion. Denies vomiting mild loose stools. He is unvaccinated against Covid. States he has had pneumonia several times in the past. Prior similar symptoms: Yes Recent Illness/Hospitalization: No PFSH PFSH Medical History Cholecystectomy planned Home Medications NK 11/21/21 [History Last Taken Unknown] Allergy/AdvReac Type Severity Reaction Status Date / Time No Known Allergies Allergy Verified 11/21/21 19:07 Social History Smoking Status: Current some day smoker tobacco type: cigarettes substance use type: does not use ROS ROS ED ROS Narrative Cough. Loose stools. Review of Systems ROS Unobtainable: Denies due to encephalopathy Constitutional Constitutional ED: Denies fever(s) Eyes Eyes: Denies change in vision ENT ENT ED: Denies ear pain Cardiovascular Cardiovascular: Denies chest pain Respiratory/Chest Respiratory/Chest: Reports cough; Denies dyspnea Gastrointestinal Gastrointestinal: Reports diarrhea; Denies abdominal pain, nausea or vomiting Genitourinary Genitourinary ED: Denies dysuria Musculoskeletal Musculoskeletal: Denies myalgias Integumentary Denies rash Neurologic Neurologic: Denies headache(s) Psychiatric Psychiatric: Denies depression Endocrine Endocrinology: Denies polyuria Allergic/Immunologic Allergic/Immunologic ED: Denies urticaria EXAM Physical Exam Narrative Exam Narrative: 3-month-old no acute distress vital signs stable afebrile. P ulse ox 90% room air no signs hypoxia. HEENT exam unremarkable. Neck nontender no lymphadenopathy. Lungs dry cough no rales, rhonchi or wheezing. Chronic ulcer management. Heart no murmur. Rate about 75. Abdomen soft nontender. Moving all 4 extremities. Calves are nontender without edema or cords. Neurologically awake and alert with no apparent Const Vital Signs: 11/21/21 19:04 11/21/21 19:16 Temperature 97.8 F Temperature Source Temporal Pulse Rate 74 Respiratory Rate 18 Respiratory Effort Normal Non-Labored Respiratory Pattern Normal Blood Pressure 124/109 H Blood Pressure Mean 114 Pulse Ox 98 Oxygen Delivery Method Room Air Positive well nourished, well developed and obese; Negative for cachectic, contractures or unkempt General Appearance ED: well developed and NAD; Negative for unkempt, cachectic, contractures, cyanotic, diaphoretic or pallor Nutritional Appearance: obese; Negative for cachectic HEENT Reports moist mucous membranes Negative for trauma or tenderness Eyes PERRL and EOMs intact bilaterally Neck no lymphadenopathy, supple and no JVD General: Negative for tenderness Chest Wall inspection of chest normal and palpation of chest normal Resp normal respiratory effort and clear to auscultation bilaterally Effort and Inspection: Negative for pain with movement Auscultation: Negative for rales, rhonchi or wheezes Cardio regular rate, regular rhythm, S1 normal heart sound, S2 normal heart sound and no murmurs GI normal to inspection, nondistended, normoactive bowel sounds, non-tender, non- distended and no masses Auscultation: normoactive bowel sounds Palpation: soft; Negative for tender, guarding or rebound tenderness present Back/Spine no CVA tenderness General Back: Negative for CVA tenderness Cervical Spine: Negative for cervical spine tenderness Thoracic Spine / Upper Back: Negative for thoracic spinal tenderness Extremity normal to inspection General Extremety ED: Negative for edema or tenderness General Extremity: Negative for edema Neuro oriented x3 and CN's II-XII intact bilaterally Sensorium / Orientation: alert; Negative for lethargic or stuporous Motor Exam: strength 5/5 throughout Psych mental status grossly normal Appearance: Negative for unkempt Mood & Affect: Negative for depressed or tearful Skin no rashes or lesions noted and no wounds General Skin Exam: Negative for jaundice or pallor MDM MDM MDM Narrative Medical decision making narrative: 31-year-old male with URI symptoms. Chest x- ray and Covid test being obtained. Otherwise exam is benign. He is not hypoxic. He will be discharged home after the work-up. Repeat exam patient doing well a 855 PM. To be discharged home and treated as a viral syndrome. Lab Data Attestation: I reviewed the patient's lab results. Lab results narrative: Rapid Covid test is negative as is the chest x-ray. Radiography Chest X-Ray - ED: 1 View, Read by ED Physician, Heart, Lungs, Mediastinum, Bony Structures, No Acute Disease and Chronic Changes Diagnostic Testing: Clinical Impression(s) from Imaging Studies Chest X-Ray 11/21/21 19:30 IMPRESSION: Normal x-ray examination of the chest. Electronically Signed: Hermes Gonzalez MD at 20:37 EST , Service support , Chest x-ray single view interpreted by myself and radiologist shows no acute abnormality. Discharge Plan Triage Chief Complaint: General Illness ED Provider: Luis Cheek Dx/Rx/DC Orders Clinical Impression: Viral URI Prescriptions: No Action NK RF: 0 Primary Care Provider: Care Physician,No Primary Referrals: Greg Kurtz MD [STAFF PHYSICIAN] - 1 Week if not improving Care Physician,No Primary [Primary Care Provider] - Activity Restrictions/Additional Instructions: Plenty of fluids and rest. Follow-up if not improving return if worse. Your chest x-ray and Covid test were both negative. Disposition Disposition: Home, Self Care
== END 2021-11-21 21:07 | disposition home or self-care (01) ==
PROVIDERS: Emergency Provider Emergency Medicine
DX: J06.9 Acute upper respiratory infection, unspecified (principal); F17.210 Nicotine dependence, cigarettes, uncomplicated; E66.9 Obesity, unspecified; Z68.39 Body mass index [BMI] 39.0-39.9, adult; Z87.01 Personal history of pneumonia (recurrent)
CPT/HCPCS: 71045; 87426; 99282

== ENCOUNTER 2022-04-04 05:45 | Emergency (ER) | payer BC, MEDICAID, SELFPAY ==
[2022-04-04 05:47] VITALS: BP 153/129; PULSE 99; RESP 20; TEMP 36.7; O2SAT 100; BMI 40.8
--- NOTE | 2022-04-04 06:08 | EX.ED.DYSGE1 ---
HPI History of Present Illness Chief Complaint: Abd Pain Narrative Narrative: Patient is a 31-year-old male with no significant past medical or surgical history. He states 1 to 2 days ago he noticed some irritation and pain around his bellybutton. He states this time is past he has noticed some redness and swelling around the site and last night at work had discharge present. He denies any trauma he denies any fevers chills or history of immunosuppression. He states that he is concerned he is developing infection secondary to this and therefore comes in for evaluation [facility] Medical History Cholecystectomy planned Home Medications clindamycin HCl [Cleocin HCl] 300 mg PO 4X/DAY 10 Days #40 cap 04/04/22 [Rx Last Taken Unknown] oxycodone-acetaminophen [Percocet] 1 tab PO Q6H PRN 3 Days #12 tab 04/04/22 [Rx Last Taken Unknown] Allergy/AdvReac Type Severity Reaction Status Date / Time No Known Allergies Allergy Verified 11/21/21 19:07 Social History Smoking Status: Current every day smoker tobacco type: e-cigarettes and smokeless tobacco substance use type: does not use ROS ROS ED Constitutional Constitutional ED: Denies chills or fever(s) ENT ENT ED: Denies sore throat Cardiovascular Cardiovascular: Denies chest pain Respiratory/Chest Respiratory/Chest: Denies cough or dyspnea Gastrointestinal Gastrointestinal: Reports abdominal pain; Denies diarrhea, nausea or vomiting Genitourinary Genitourinary ED: Denies dysuria Musculoskeletal Musculoskeletal: Denies myalgias Integumentary Reports other Details: Positive erythema ; Denies rash Neurologic Neurologic: Denies headache(s) Hematologic/Lymphatic Hematologic/Lymphatic: Denies easy bleeding or easy bruising EXAM Physical Exam Const Vital Signs: 04/04/22 05:47 04/04/22 06:14 Temperature 98.1 F Temperature Source Oral Pulse Rate 99 Respiratory Rate 20 H 16 Blood Pressure 153/129 H Blood Pressure Mean 137 Pulse Ox 100 Oxygen Delivery Method Room Air Positive well nourished and well developed General Appearance ED: well developed Eyes PERRL and EOMs intact bilaterally Neck supple Resp normal respiratory effort and clear to auscultation bilaterally Cardio regular rate and regular rhythm GI non-distended and no masses GI Narrative: Patient has asymmetric erythema and warmth approximately 1 cm around his umbilicus. The internal skin of the umbilicus is also erythematous and excoriated. There is a small amount of purulent material present. However there is no obvious abscess palpated. No voluntary guarding or rigidity no pulsatile mass Auscultation: normoactive bowel sounds Palpation: soft Extremity normal to inspection Neuro oriented x3 and CN's II-XII intact bilaterally Sensorium / Orientation: alert Motor Exam: strength 5/5 throughout Psych mental status grossly normal Skin Skin Narrative: Soft tissue changes around the umbilicus as documented above MDM MDM MDM Narrative Medical decision making narrative: Patient presented to the ER hypertensive but otherwise with stable vitals. His exam is consistent with an abdominal wall cellulitis and early abscess. I cannot palpate a fluctuant or indurated area around the umbilicus and therefore do not feel there is need for incision and drainage. I discussed with patient possibility of blood work as well as CT scan because of his pain and symptom. Patient states that as he is otherwise healthy and the symptoms are relatively new he does not want to go down that route at this time. Therefore patient was started on antibiotics and pain medication but was advised that if he develops a fever or worsening redness or pain he will need to return to the hospital for blood work as well as imaging studies at that time. Patient states he is agreeable to this plan and therefore we discharged with antibiotics and pain medication Discharge Plan Triage Chief Complaint: Abd Pain ED Provider: Dmitry Ji Dx/Rx/DC Orders Clinical Impression: Abdominal wall cellulitis Instructions: Abscess Drainage, ED Cellulitis Prescriptions: New clindamycin HCl [Cleocin HCl] 300 mg capsule 300 mg PO 4X/DAY 10 Days Qty: 40 RF: 0 oxycodone-acetaminophen [Percocet] 5-325 mg tablet 1 tab PO Q6H PRN (Reason: pain) 3 Days Qty: 12 RF: 0 Stand Alone Forms: ED Work / School Excuse Primary Care Provider: Care Physician,No Primary Referrals: Renetta Gilliland DO [STAFF PHYSICIAN] - 3-5 Days if not improving Care Physician,No Primary [Primary Care Provider] - Activity Restrictions/Additional Instructions: Please take the antibiotic as directed to help resolve your infection. Continue to wash area with soap and water. If you notice that the redness is increasing in size or you develop a fever over 100.4 please return to the ER for repeat evaluation. Disposition Disposition: Home, Self Care Discharge Date/Time: 04/04/22 06:30
[2022-04-04 06:14] VITALS: RESP 16
[2022-04-04] MEDS: Clindamycin HCl 150 MG Capsule 300 MG PO (06:14)
== END 2022-04-04 06:30 | disposition home or self-care (01) ==
LOC: ED 06:26
PROVIDERS: Emergency Provider Emergency Medicine; Visit Provider Emergency Medicine
DX: L03.311 Cellulitis of abdominal wall (principal); F17.290 Nicotine dependence, other tobacco product, uncomplicated; F17.220 Nicotine dependence, chewing tobacco, uncomplicated
CPT/HCPCS: 99283

== ENCOUNTER 2022-12-25 17:31 | Emergency (ER) | payer MEDICAID, SELFPAY ==
[2022-12-25 17:33] VITALS: BP 150/89; PULSE 99; RESP 16; TEMP 37.1; O2SAT 98; BMI 35.0
--- NOTE | 2022-12-25 17:59 | CT_ITS ---
STUDY: CTA HEAD AND NECK WITH CONTRAST REASON FOR EXAM: Male, 32 years old. Headache and dizziness. RADIATION DOSAGE (If Supplied By Facility): CTDIvol = ( 32.21 ) mGy, DLP = ( 1621.49 ) mGycm TECHNIQUE: CT angiography was performed with a multi-detector CT scanner. Data acquisition was obtained from the skull base through the vertex following intravenous administration of IV 100mL [id number]-370. MIP images were reconstructed from the axial data set. Post-processing of the angiographic images was performed, with multiplanar reformation and 3D reconstruction. Individualized dose optimization techniques were used for this CT. COMPARISON: No relevant priors. FINDINGS: Normal bilateral petrous carotid arteries. Normal right cavernous carotid artery with a normal supraclinoid bifurcation. Normal left cavernous carotid artery with a normal supraclinoid bifurcation. Normal right A1 segments of the anterior cerebral artery. Normal left A1 segments of the anterior cerebral artery. Normal intact anterior communicating artery (ACOM). Normal bilateral A2 segments of the anterior cerebral arteries. Normal right M1 and M2 segments of the middle cerebral arteries, with a normal M1 bifurcation. Normal left M1 and M2 segments of the middle cerebral arteries, with a normal M1 bifurcation. There is non-visualization of the right posterior communicating artery (PCOM). There is non-visualization of the left posterior communicating artery (PCOM). Normal bilateral vertebral arteries. Normal basilar artery with a normal basilar bifurcation. The visualized bilateral superior cerebellar (SCA) arteries are normal. Normal bilateral P1, P2 and visualized P3 segments of the posterior cerebral arteries. There is no demonstrated aneurysm of the [place] of [place]. There is no demonstrated abnormality of the visualized brain. AORTIC ARCH: Normal visualized aortic arch. Normal origins of the brachiocephalic, left common carotid, and left subclavian arteries. RIGHT CAROTID ARTERIES: Normal right common carotid artery (CCA). Normal right common carotid bulb. Normal origin of the right internal carotid (ICA) artery without a hemodynamically significant stenosis. Normal visualized cervical portion of the right internal carotid artery. Normal origin of the right external carotid artery (ECA). LEFT CAROTID ARTERIES: Normal left common carotid artery (CCA). Normal left common carotid bulb. Normal origin of the left internal carotid (ICA) artery without a hemodynamically significant stenosis. Normal visualized cervical portion of the left internal carotid artery. Normal origin of the left external carotid artery (ECA). VERTEBRAL ARTERIES: Normal bilateral vertebral arteries. CT/CTA Head AND Neck W/ Contrast IMPRESSION: Normal CTA Head and neck with contrast. Electronically Signed: Remi Cano DO at 18:54 [facility] ,
--- NOTE | 2022-12-25 18:00 | EKG12_ITS ---
Test Reason : CHEST PAIN Blood Pressure : / mmHG Vent. Rate : 091 BPM Atrial Rate : 091 BPM P-R Int : 176 ms QRS Dur : 082 ms QT Int : 352 ms P-R-T Axes : 052 007 040 degrees QTc Int : 432 ms Normal sinus rhythm with sinus arrhythmia Normal ECG Confirmed by TYESHA ALICEA, SOPHIE ([id number]), film and video editor CHARLIE LOBATO ([id number]) on 12/26/2022 10:17:15 AM Referred By: KRYSTIAN Confirmed By:SOPHIE ARAMBULA MD
--- NOTE | 2022-12-25 18:01 | EX.ED.DYSGE1 ---
HPI History of Present Illness Chief Complaint: Chest Pain Detail of Chief Complaint: Headache and chest pain and generalized weakness Informant: patient Narrative Narrative: Patient presents the emergency department with main complaint of chest pain but has multiple other complaints. Patient tells me that 2 days ago he woke up with a headache behind his right eye. With standing headache gets worse. Patient states he had a really good day yesterday with his kids. This morning he had to yell at his kids and when he yelled at him he developed chest pain and worsening headache. Patient feels lightheaded and dizzy with standing or trying to walk. No family history of brain tumors or aneurysms. Denies falls or head injuries. Denies recent illness otherwise. 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 Patient does have history of stress and anxiety and depression. Prior similar symptoms: No PFSH PFSH Medical History (Updated 12/25/22 @ 20:[address] Pio Ambrosio, DO) Alcohol abuse Cholecystectomy planned Substance abuse Home Medications lorazepam 1 mg tablet (Ativan) 1 mg PO TID PRN anxiety #10 tabs 12/25/22 [Rx Last Taken Unknown] Allergy/AdvReac Type Severity Reaction Status Date / Time No Known Allergies Allergy Verified 12/25/22 17:37 Social History Smoking Status: Former smoker substance use type: does not use ROS ROS ED Review of Systems ROS Unobtainable: other Constitutional Constitutional ED: Reports lethargy; Denies chills, fever(s), sweats or weight loss Eyes Eyes: Denies blurry vision, change in vision or diplopia ENT ENT ED: Denies rhinorrhea or sore throat Cardiovascular Cardiovascular: Reports chest pain; Denies orthopnea or racing heartbeat Respiratory/Chest Respiratory/Chest: Denies cough, dyspnea, dyspnea on exertion, orthopnea or sputum Gastrointestinal Gastrointestinal: Denies abdominal pain, diarrhea, nausea or vomiting Genitourinary Genitourinary ED: Denies dysuria, hematuria or urinary frequency Musculoskeletal Musculoskeletal: Denies arthralgias, back pain, myalgias or neck pain Integumentary Denies abscess, Abrasions or rash Neurologic Neurologic: Reports headache(s) and paresthesias; Denies weakness Psychiatric Psychiatric: Denies anxiety, depression or suicidal thoughts Endocrine Endocrinology: Denies polydipsia, polyphagia or polyuria Hematologic/Lymphatic Hematologic/Lymphatic: Denies easy bleeding, easy bruising or lymphadenopathy Allergic/Immunologic Allergic/Immunologic ED: Denies mouth swelling, tongue swelling or urticaria EXAM Physical Exam Const Vital Signs: 12/25/22 17:33 12/25/22 17:37 12/25/22 18:33 Temperature 98.8 F Temperature Source Temporal Pulse Rate 99 98 Respiratory Rate 16 13 Respiratory Pattern Normal Blood Pressure 150/89 H 148/92 H Blood Pressure Mean 109 110 Pulse Ox 98 94 Oxygen Delivery Method Room Air Room Air 12/25/22 19:00 12/25/22 20:00 Temperature Temperature Source Pulse Rate 96 84 Respiratory Rate 15 19 H Respiratory Pattern Blood Pressure 150/99 H 136/83 H Blood Pressure Mean 116 100 Pulse Ox 95 96 Oxygen Delivery Method Room Air Room Air Positive well nourished and well developed General Appearance ED: well developed and NAD HEENT Reports TM's clear and moist mucous membranes normocephalic and atraumatic; Negative for trauma or tenderness Tympanic Membrane ED: Yes TM's clear Eyes PERRL and EOMs intact bilaterally General Eye ED: Negative for pale conjunctiva or scleral icterus Neck no lymphadenopathy, supple and no JVD General: Negative for tenderness Chest Wall inspection of chest normal and palpation of chest normal Chest: Negative for tenderness Resp normal respiratory effort and clear to auscultation bilaterally Effort and Inspection: Negative for respiratory distress or pain with movement Auscultation: Negative for rhonchi, wheezes or diminished lung sounds Cardio regular rate, regular rhythm, S1 normal heart sound, S2 normal heart sound and no murmurs Peripheral Pulses: pulses 2+ throughout GI normal to inspection, nondistended, normoactive bowel sounds, soft to palpation, non-tender, non-distended and no masses Back/Spine no CVA tenderness and no thoracic nor lumbar tenderness Extremity normal to inspection General Extremety ED: Negative for edema General Extremity: Negative for edema Neuro oriented x3, CN's II-XII intact bilaterally, no sensory deficits noted and gait normal Sensorium / Orientation: awake, alert, oriented to person, oriented to place and oriented to time Motor Exam: strength 5/5 throughout and strength abnormal Psych mental status grossly normal Skin no rashes or lesions noted and no wounds MDM MDM MDM Narrative Medical decision making narrative: Presents the emergency department with multiple complaints. Given his headache that is different than usual and his complaint of feeling lightheaded with standing and walking entertain possibility of acute intracranial process such as brain aneurysm or intracranial hemorrhage. CTA of head neck obtained was essentially normal. Patient has CBC with differential and chemistries are unremarkable. LFTs did show slight elevation in his AST at 44 and ALT at 84. Troponin was normal. EKG on arrival showed a sinus rhythm with a rate of 91 bpm with occasional PACs otherwise no acute ST segment elevations. Patient I feel is low risk for acute coronary syndrome. While in the department he did complain of abdominal pain therefore CT scan of the M pelvis obtained showed no evidence of acute intra-abdominal process. I did give patient a milligram of Ativan which did seem to help some of his symptomatology. Patient does have history of anxiety and has had increased stress. He thinks some of his symptoms may be due to discontinuing some of his drug use and alcohol use coupled with stress. Patient will be given a prescription for some Ativan as needed for anxiety. Will be discharged to home with referral to primary care physician for follow-up. Patient comfortable with plan Lab Data Attestation: I reviewed the patient's lab results. Labs: Laboratory Results - last 24 hr 12/25/22 12/25/22 18:04 18:04 WBC 10.0 RBC 5.49 Hgb 17.0 H Hct 50.6 MCV 92.2 MCH 31.0 MCHC 33.6 RDW Std Deviation 43.1 RDW Coeff of Claudia 12.6 Plt Count 288 MPV 10.0 Immature Gran % (Auto) 0.300 Neut % (Auto) 60.5 Lymph % (Auto) 27.3 Hendricks % (Auto) 9.5 Eos % (Auto) 1.8 Baso % (Auto) 0.6 Absolute Neuts (auto) 6.0 Absolute Lymphs (auto) 2.72 Nucleated RBC % 0 Sodium 143 Potassium 3.8 Chloride 106 Carbon Dioxide 29.0 Anion Gap 8 BUN 13 Creatinine 0.87 Estim Creat Clear Calc 142.99 Est GFR (MDRD) Af Amer 128 Est GFR (MDRD) Non-Af 106 BUN/Creatinine Ratio 14.9 Glucose 90 Calcium 9.8 Total Bilirubin 1.40 H AST 44 H ALT 84 H Alkaline Phosphatase 73 Troponin I High Sens 5 Total Protein 8.3 H Albumin 4.4 Globulin 3.9 Albumin/Globulin Ratio 1.1 Radiography Diagnostic Testing: Clinical Impression(s) from Imaging Studies Head/Neck CTA 12/25/22 17:59 IMPRESSION: Normal CTA Head and neck with contrast. Electronically Signed: Remi Cano at 18:54 EST Reading Location ID and State: [facility] / [place] Tel [phone], Service support , Chest X-Ray 12/25/22 18:19 IMPRESSION: No acute cardiopulmonary disease. There is no major interval change. Electronically Signed: Remi RachaelDO at 18:31 EST Reading Location ID and State: [facility] / [place] Tel [phone], Service support , Abdomen/Pelvis CT 12/25/22 19:04 IMPRESSION: 1. Normal appendix. 2. Normal kidneys, ureters and urinary bladder. 3. No evidence of acute intra-abdominal or pelvic process. No major interval change. Electronically Signed: Remi RachaelDO at 19:59 EST Reading Location ID and State: [facility] / [place] Tel [phone], Service support , 1 view chest x-ray obtained interpreted by myself no acute disease process. There is no evidence of infiltrate or pneumothorax. Radiology in agreement. EKG Initial EKG: Attestation: I personally reviewed and interpreted this EKG as follows: Comments: Sinus rhythm with a rate of 91 bpm with no acute ST segment changes Discharge Plan Triage Chief Complaint: Chest Pain ED Provider: Pio Ambrosio Dx/Rx/DC Orders Clinical Impression: Abdominal pain, Headache, Chest pain, Anxiety Instructions: ED Anxiety Reaction, ED Chest Pain, Uncertain Cause, ED Pain, Acute, Uncertain Cause, ED Abdominal Pain Unkn Cause Male..., ED Chest Wall Strain Prescriptions: New lorazepam [Ativan] 1 mg tablet 1 mg PO TID PRN (Reason: anxiety) Qty: 10 0RF Primary Care Provider: Care Physician,No Primary Referrals: Veronica Corona MD [Med Staff - Adjunct Physics Instructor] - 3-5 Days Care Physician,No Primary [Primary Care Provider] - Disposition Disposition: Home, Self Care
[2022-12-25] MEDS: 0.9% Normal Saline 1,000 ML 150 ML IV (18:06)
[2022-12-25] MEDS: LORazepam 2 MG/ML Syringe 1 MG IV (18:06)
[2022-12-25 18:10] LABS: Absolute Lymphocyte Count 2.72 X10^3/uL (0.83-4.51); Basophil# 0.06 X10^3/uL; Basophil% 0.6 % (0-1); Eosinophil# 0.18 X10^3/uL; Eosinophils% 1.8 % (0-5); Hematocrit 50.6 % (40-54); Lymphocyte # 2.72 X10^3/ul (0.83-4.51); Lymphocyte % 27.3 % (19-41); Mean Corp Hgb Conc 33.6 g/dL (32-36); Mean Corpuscular Volume 92.2 fL (80-94); Monocyte# 0.95 X10^3/uL; Monocyte% 9.5 % (0-10); NRBC Flagged by Analyzer 0 % (0-5); Neutrophil # 6.02 X10^3/uL (2.7-7.7); Neutrophil % 60.5 % (47-70); Platelet Count 288 K/mm3 (150-450); RBC Distribution Width CV 12.6 % (11.6-14.6); RBC Distribution Width SD 43.1 fl (35.1-43.9); Red Blood Count 5.49 M/mm3 (4.6-6.2)
--- NOTE | 2022-12-25 18:19 | RAD_ITS ---
STUDY: X-RAY CHEST REASON FOR EXAM: Male, 32 years old. Chest pain. Dizziness. Symptoms began at 1400 hours today after yelling at his children. Clean from alcohol and marijuana and methamphetamine for 2 weeks. Patient''s dates it feels like he was hit by a truck TECHNIQUE: Single AP portable view of the chest. COMPARISON: November 21, 2021. FINDINGS: The lungs are clear and expanded. There is no demonstrated pleural abnormality. Normal size heart. Normal mediastinum and horacio. Normal visualized pulmonary arteries. Normal visualized aortic arch and descending thoracic aorta. No osseous changes. There is no demonstrated abnormality of the visualized soft tissue structures of the upper abdomen. RAD/Chest 1 View (Portable) IMPRESSION: No acute cardiopulmonary disease. There is no major interval change. Electronically Signed: Remi Cano DO at 18:31 EST ,
[2022-12-25 18:28] LABS: ALB/GLOB Ratio 1.1 RATIO (0.9-2.4); AST(SGOT) 44 U/L (15-37); Alanine Aminotransfer ALT/SGPT 84 U/L (16-61); Albumin, Serum 4.4 g/dL (3.2-5.0); Alkaline Phosphatase 73 U/L (45-117); Anion Gap 8 (5-15); BUN 13 mg/dL (7-18); BUN/Creat Ratio 14.9 RATIO (10-20); Calcium,Total 9.8 mg/dL (8.5-10.1); Chloride 106 mmol/L (98-107); Creatinine, Serum 0.87 mg/dL (0.70-1.30); EST Glomerular Filtration Rate 106 mL/min (>60); Est Glom Filt Rate - Afr Amer 128 mL/min (>60); Estimated Creatinine Clearance 142.99 ml/min; Globulin 3.9 g/dL (2.2-4.2); Glucose 90 mg/dL (74-106); Potassium 3.8 mmol/L (3.5-5.1); Protein, Total 8.3 g/dL (6.4-8.2); Sodium Level 143 mmol/L (136-145); Troponin-I HS 5 pg/mL (3.0-78.0)
[2022-12-25 18:33] VITALS: BP 148/92; PULSE 98; RESP 13; O2SAT 94
[2022-12-25 19:00] VITALS: BP 150/99; PULSE 96; RESP 15; O2SAT 95
--- NOTE | 2022-12-25 19:04 | CT_ITS ---
STUDY: CT ABDOMEN AND PELVIS WITHOUT CONTRAST REASON FOR EXAM: Male, 32 years old. Abdominal pain. Epigastric and right flank pain. History of cholecystectomy. RADIATION DOSAGE (If Supplied By Facility): CTDIvol = ( 23.83 ) mGy, DLP = ( 1488.40 ) mGycm TECHNIQUE: Transaxial images were obtained from the dome of the diaphragm to the symphysis pubis without oral contrast, and without intravenous contrast. Sagittal and coronal images were reconstructed. Individualized dose optimization techniques were used for this CT. COMPARISON: June 02, 2021. FINDINGS: The visualized lung bases are unremarkable. The visualized portions of the heart are within normal limits. Normal liver. The gallbladder is absent consistent with history of cholecystectomy. No biliary ductal dilatation. Normal spleen. Normal pancreas. Normal bilateral adrenal glands. Normal right kidney. Normal left kidney. Contrast is seen in the bilateral renal collecting systems secondary to earlier CT of the head and neck. Normal ureters. Normal visualized stomach. Normal small intestine. Normal colon. The appendix is visualized and appears normal. Normal abdominal aorta. Normal inferior vena cava. Normal retroperitoneum. Urinary bladder distended with contrast. There is no filling defect or wall thickening. Normal prostate. No pelvic lymphadenopathy. No free air or free fluid is seen within the peritoneal cavity. Normal abdominal wall. Normal osseous structures. CT/Abdomen/Pelvis without Cont IMPRESSION: 1. Normal appendix. 2. Normal kidneys, ureters and urinary bladder. 3. No evidence of acute intra-abdominal or pelvic process. No major interval change. Electronically Signed: Remi Cano DO at 19:59 EST Reading Location ID and State: [address] [place] [address] Tel [phone], Service support ,
[2022-12-25 20:00] VITALS: BP 136/83; PULSE 84; RESP 19; O2SAT 96
[2022-12-25 20:54] VITALS: BP 144/82; PULSE 92; RESP 12; O2SAT 97
== END 2022-12-25 21:09 | disposition home or self-care (01) ==
PROVIDERS: Emergency Provider Emergency Medicine; Visit Provider Emergency Medicine
DX: R10.9 Unspecified abdominal pain (principal); R51.9 Headache, unspecified; R07.9 Chest pain, unspecified; F41.9 Anxiety disorder, unspecified; Z87.891 Personal history of nicotine dependence
CPT/HCPCS: 70496; 70498; 71045; 74176; 80053; 84484; 85025; 93005; 96361; 96374; 99285; Q9967; A4216

== ENCOUNTER 2023-03-13 01:02 | Emergency (ER) | payer MEDICAID, SELFPAY ==
[2023-03-13 01:03] VITALS: TEMP 36.6; BMI 34.7
[2023-03-13 01:09] VITALS: BP 143/95; PULSE 89; RESP 18; O2SAT 99
--- NOTE | 2023-03-13 01:44 | EDS_ITS ---
HPI History of Present Illness Chief Complaint: Back Informant: patient Narrative Narrative: Patient's been having exacerbation of pain diffusely around his right shoulder area for about 2 to 2-1/2 weeks. He states it just keeps getting slowly worse although it does wax and wane. It never goes away. If he turns his head looking to the left it exacerbates it. If he moves his upper extremity on the right or shoulder it is worse. He has no pain past the deltoid area. Most of it is in the deltoid and periscapular region. He does have a history of an injury in about 2015. He slipped and fell and hit this area. It sounds like no fracture was done. But he has had some problems since. He went through physical therapy. He uses a TENS unit when he gets bad. He has not been on meds for a while. He has not seen anyone as he moved from [place] to this area. He cannot think of anything he did to aggravate this. There is no numbness tingling or weakness. There is no chest pain or trouble breathing. No coughing or hemoptysis. He has not had any recent infections including no dental or skin infections. He has not had fevers or chills. Moving it makes it worse as above. Rest makes it better. [facility] Medical History Alcohol abuse Cholecystectomy planned Substance abuse Home Medications cyclobenzaprine 10 mg tablet 10 mg PO TID PRN Muscle Spasm #20 TABLETS 03/13/23 [Rx Last Taken Unknown] naproxen 500 mg tablet 500 mg PO BID #20 tabs 03/13/23 [Rx Last Taken Unknown] Allergy/AdvReac Type Severity Reaction Status Date / Time No Known Allergies Allergy Verified 12/25/22 17:37 Surgical History History of cholecystectomy Social History Smoking Status: Current every day smoker tobacco type: e-cigarettes and smokeless tobacco substance use type: does not use ROS ROS ED Constitutional Constitutional ED: Denies chills, fever(s), subjective or sweats ENT ENT ED: Denies rhinorrhea or sore throat Cardiovascular Cardiovascular: Denies chest pain, palpitations or racing heartbeat Respiratory/Chest Respiratory/Chest: Denies cough, dyspnea or dyspnea on exertion Gastrointestinal Gastrointestinal: Denies abdominal pain, nausea or vomiting Musculoskeletal Musculoskeletal: Reports myalgias and other Details: See history of present illness Integumentary Denies abscess, Abrasions or rash Neurologic Neurologic: Denies headache(s), paresthesias or weakness Hematologic/Lymphatic Hematologic/Lymphatic: Denies lymphadenopathy Allergic/Immunologic Allergic/Immunologic ED: Denies urticaria EXAM Physical Exam Narrative Exam Narrative: Patient is awake and alert. He is sitting in the bed. He is comfortable but he does not like to look to the left or move his right arm. HEENT shows no sign of trauma. No dental infections. No swelling. Neck shows minimal tenderness at the very base of the neck on the right. It is a little bit more sore when he looks to the left but there is no meningismus. There is no swelling. No distended jugular. No bruit heard. Chest is clear. Good deep breaths. Saturations 99% on room air showing no hypoxia. Heart is regular. Tones are not muffled. He has good pulses x4 including good pulse in the wrist of the right arm. Abdomen is soft and nontender Extremities he does have tenderness along the medial edge of the scapula and diffusely on the scapula. Passive motion of the shoulder itself does not seem to hurt so much but any active motion does. He has a little soreness around the deltoid. But there is no swelling. There is no lesions. No rash or vesicles. It is not warm. Neurologically he is distal normal strength including chemist intern strength and sensation. Const Vital Signs: 03/13/23 01:03 03/13/23 01:09 Temperature 97.9 F Temperature Source Temporal Pulse Rate 89 Respiratory Rate 18 Blood Pressure 143/95 H Blood Pressure Mean 111 Pulse Ox 99 Oxygen Delivery Method Room Air MDM MDM MDM Narrative Medical decision making narrative: Patient has history of pain in the same area. He has history of intermittent exacerbations. He has a TENS unit. I will write for some nonsteroidals and muscle relaxants. There is no reported history of infection or suspicion of infection. I do not think he needs joint aspiration. I do not think blood work or x-rays are needed. He has no acute fall or injury. This is kind of diffuse muscular pain. He has excellent pulses. PERC is negative. Discharge Plan Triage Chief Complaint: Back ED Provider: Hunter Pearson Dx/Rx/DC Orders Clinical Impression: Pain in right shoulder Instructions: ED Shoulder Pain, Uncertain Cause Prescriptions: New cyclobenzaprine [cyclobenzaprine] 10 mg tablet 10 mg PO TID PRN (Reason: Muscle Spasm) Qty: 20 0RF naproxen 500 mg tablet 500 mg PO BID Qty: 20 0RF Primary Care Provider: Care Physician,No Primary Referrals: Marilou Barrett MD [Med Staff - Marketing Analyst] - 3-5 Days if not improving Care Physician,No Primary [Primary Care Provider] - Disposition Disposition: Home, Self Care
[2023-03-13] MEDS: Ketorolac 60 MG/2 ML Vial IM (02:03)
[2023-03-13] MEDS: Orphenadrine 100 MG Tablet PO (02:10)
[2023-03-13 02:11] VITALS: PULSE 91; RESP 16; O2SAT 98
== END 2023-03-13 02:23 | disposition home or self-care (01) ==
PROVIDERS: Emergency Provider Emergency Medicine; Visit Provider Emergency Medicine
DX: M25.511 Pain in right shoulder (principal); F17.290 Nicotine dependence, other tobacco product, uncomplicated
CPT/HCPCS: 96372; 99283

== ENCOUNTER 2023-04-03 10:44 | Emergency (ER) | payer MEDICAID, SELFPAY ==
[2023-04-03 10:45] VITALS: BP 138/107; PULSE 102; RESP 16; TEMP 35.6; O2SAT 100; BMI 33.3
--- NOTE | 2023-04-03 11:30 | EX.ED.UPPERE ---
HPI History of Present Illness Chief Complaint: Upper Extremity Injury Narrative Narrative: Patient presents with right arm pain, he has neck pain and it radiates and shoots into his right hand he has had it for over a month. He has intermittent muscle spasms. He has no headache, no fever or chills. No known trauma. [facility] Medical History Alcohol abuse Cholecystectomy planned Substance abuse Home Medications gabapentin 300 mg capsule 300 mg PO TID #90 caps 04/03/23 [Rx Last Taken Unknown] prednisone 20 mg tablet 60 mg PO DAILY #15 TABLETS 04/03/23 [Rx Last Taken Unknown] Allergy/AdvReac Type Severity Reaction Status Date / Time No Known Allergies Allergy Verified 04/03/23 10:44 Surgical History History of cholecystectomy Social History Smoking Status: Current every day smoker tobacco type: e-cigarettes and smokeless tobacco substance use type: does not use ROS ROS ED ROS Narrative Past medical history: Reviewed Medications: Reviewed Social history: Noncontributory Review of systems: All systems negative except as indicated General: No fever Eyes: No visual changes ENT: No upper airway congestion, normal voice Neck: Neck pain as in HPI Cardiovascular: No chest pain Respiratory: No shortness of breath or cough Gastrointestinal: No abdominal pain, nausea vomiting or diarrhea Musculoskeletal: Right arm pain Neurological: No weakness EXAM Physical Exam Narrative Exam Narrative: Physical exam General: Patient appears relatively comfortable Head: Normocephalic, Atraumatic Eyes: Conjunctiva not pale ENT: Moist mucous membranes Neck: He has mostly right-sided paraspinal neck pain. Cardiovascular: Regular rate, Regular rhythm Respiratory: No distress, CTA bilaterally Back: Nontender, Normal Inspection. Negative for: CVA tenderness Extremities: Normal strength, sensation is intact of the right upper extremity. Const Vital Signs: 04/03/23 10:45 Temperature 96.0 F L Temperature Source Temporal Pulse Rate 102 H Respiratory Rate 16 Blood Pressure 138/107 H Blood Pressure Mean 117 Pulse Ox 100 Oxygen Delivery Method Room Air MDM MDM MDM Narrative Medical decision making narrative: Patient's work-up is unremarkable. He does not meet criteria for an MRI, he still has paresthesias therefore he may need nerve conduction tests. I will refer him to neurology. Otherwise his strength is intact. I believe he can be safely discharged home if anything changes he is to return. I talked to his who is in the room and gave me history. Differentials include spinal cord compression, nerve compression peripherally, a plexopathy and neuropathy. Discharge Plan Triage Chief Complaint: Upper Extremity Injury ED Provider: Garth Deng Dx/Rx/DC Orders Clinical Impression: Arm paresthesia, right Instructions: ED Paraesthesias Prescriptions: New gabapentin 300 mg capsule 300 mg PO TID Qty: 90 0RF prednisone 20 mg tablet 60 mg PO DAILY Qty: 15 0RF Primary Care Provider: Care Physician,No Primary Referrals: Gilberto Pendleton MD [Non-Staff -Ordering Privileges] - 3-5 Days Care Physician,No Primary [Primary Care Provider] - Disposition Disposition: Home, Self Care
--- NOTE | 2023-04-03 11:43 | CT_ITS ---
STUDY: CT CERVICAL SPINE WITHOUT CONTRAST REASON FOR EXAM: Male, 32 years old. 3 week history of right-sided neck pain in the right upper extremity pain. No history of trauma. RADIATION DOSAGE (If Supplied By Facility): CTDIvol = ( 21.36 ) mGy, DLP = ( 524.27 ) mGycm TECHNIQUE: High resolution transaxial imaging was performed without contrast material. Sagittal and coronal images were reconstructed. Individualized dose optimization techniques were used for this CT. COMPARISON: None FINDINGS: Normal craniovertebral junction. Normal anterior atlantoaxial articulation. Normal odontoid process. There is reversal of the normal cervical lordosis. Normal vertebral bodies and posterior osseous elements. C2-3: Normal endplates. Normal disc height and morphology. Normal central canal and intervertebral neuroforamina. C3-4: Normal endplates. Normal disc height and morphology. Normal central canal and intervertebral neuroforamina. C4-5: Normal endplates. Normal disc height and morphology. Normal central canal and intervertebral neuroforamina. C5-6: Normal endplates. Normal disc height and morphology. Normal central canal and intervertebral neuroforamina. C6-7: Normal endplates. Normal disc height and morphology. Normal central canal and intervertebral neuroforamina. C7-T1: Normal endplates. Normal disc height and morphology. Normal central canal and intervertebral neuroforamina. Normal visualized soft tissue structures. CT/Spine Cervical without Contras IMPRESSION: Reversal of normal cervical lordosis. No acute abnormality is seen. Electronically Signed: Kyle Guillen MD at 12:01 EDT ,
--- NOTE | 2023-04-03 12:01 | CM.ED ---
Social Work Note Referral Source: case find Referral Reason: no PCP SW met with patient and patient's guest and introduced herself and role as [facility] Program Support Assistant. Patient sitting up on hospital bed and agreeable to speak with SW with guest present. SW inquired about patient's insurance and current PCP. Patient verified insurance and reports no current PCP. SW provided patient with a list of local PCPs in network with patient's insurance and accepting new patients. Patient was receptive towards list and voiced no other needs. SW remains available if needs arise. Serena Castillo INDIGO VAT TENDER CLOTH, FREDIS
[2023-04-03 12:55] VITALS: PULSE 94; O2SAT 96
== END 2023-04-03 12:56 | disposition home or self-care (01) ==
PROVIDERS: Emergency Provider Emergency Medicine; Visit Provider Emergency Medicine
DX: R20.2 Paresthesia of skin (principal); F17.220 Nicotine dependence, chewing tobacco, uncomplicated
CPT/HCPCS: 72125; 99282

== ENCOUNTER 2023-08-07 18:25 | Emergency (ER) | payer SELFPAY ==
[2023-08-07 18:26] VITALS: BP 154/98; PULSE 131; RESP 18; TEMP 36.4; O2SAT 97; BMI 29.8
[2023-08-07 18:56] LABS: Absolute Lymphocyte Count 2.46 X10^3/uL (0.83-4.51); Absolute Neutrophil Count 6.6 X10^3/uL (2.0-7.7); Basophil# 0.04 X10^3/uL; Basophil% 0.4 % (0-1); Eosinophil# 0.04 X10^3/uL; Eosinophils% 0.4 % (0-5); Hematocrit 52.5 % (40-54); Hemoglobin 17.3 g/dL (13.0-16.5); Lymphocyte # 2.46 X10^3/ul (0.83-4.51); Lymphocyte % 24.7 % (19-41); Mean Corpuscular Hgb 31.2 pg (27.0-32.0); Mean Corpuscular Volume 94.8 fL (80-94); Mean Platelet Vol. 9.5 fl (6.2-12.0); Monocyte# 0.79 X10^3/uL; Monocyte% 7.9 % (0-10); NRBC Flagged by Analyzer 0 % (0-5); Neutrophil # 6.56 X10^3/uL (2.7-7.7); Neutrophil % 66.1 % (47-70); Platelet Count 279 K/mm3 (150-450); RBC Distribution Width CV 12.9 % (11.6-14.6); RBC Distribution Width SD 45.3 fl (35.1-43.9); Red Blood Count 5.54 M/mm3 (4.6-6.2); White Blood Count 9.9 K/mm3 (4.4-11.0)
[2023-08-07 19:12] LABS: AST(SGOT) 23 U/L (15-37); Alanine Aminotransfer ALT/SGPT 37 U/L (16-61); Albumin, Serum 4.1 g/dL (3.2-5.0); Alkaline Phosphatase 93 U/L (45-117); Anion Gap 12 (5-15); BUN 12 mg/dL (7-18); BUN/Creat Ratio 10.4 RATIO (10-20); Calcium,Total 9.5 mg/dL (8.5-10.1); Chloride 104 mmol/L (98-107); Creatinine, Serum 1.15 mg/dL (0.70-1.30); EST Glomerular Filtration Rate 77 mL/min (>60); Est Glom Filt Rate - Afr Amer 93 mL/min (>60); Estimated Creatinine Clearance 107.16 ml/min; Globulin 4.1 g/dL (2.2-4.2); Glucose 90 mg/dL (74-106); Potassium 3.7 mmol/L (3.5-5.1); Protein, Total 8.2 g/dL (6.4-8.2); Sodium Level 138 mmol/L (136-145)
--- NOTE | 2023-08-07 21:00 | EKG12_ITS ---
Test Reason : DYSRHYTHMIA Blood Pressure : / mmHG Vent. Rate : 119 BPM Atrial Rate : 119 BPM P-R Int : 162 ms QRS Dur : 074 ms QT Int : 310 ms P-R-T Axes : 077 048 068 degrees QTc Int : 436 ms Sinus tachycardia Right atrial enlargement Borderline ECG Confirmed by TYESHA ALICEA, SOPHIE ([id number]), newspaper editor DMITRIY DANIELS ([id number]) on 08/10/2023 1:31:08 PM Referred By: MAGDA Confirmed By:SOPHIE ARAMBULA MD
[2023-08-07 21:07] VITALS: PULSE 118; RESP 16; O2SAT 99
--- NOTE | 2023-08-07 21:41 | EDS_ITS ---
HPI History of Present Illness Chief Complaint: Abd Pain Informant: patient Onset/Context/Timing Onset: Today Narrative Narrative: Patient presents with abdominal pain, shoulder pain, generalized muscle spasms. Patient is here from [place] visiting his children. He states he was playing with them yesterday and strained his right shoulder. Has had problems with this before. He was walking to the emergency room to be evaluated for this when he developed epigastric abdominal pain. He states he broke out in a sweat and is now having muscle spasms and cramps throughout his body. He states he has had problems with diffuse muscle spasms like this in the past but never quite this severe. He states usually IV fluids to hydrate him is what treats his symptoms. [facility] Medical History Alcohol abuse Cholecystectomy planned Substance abuse Home Medications NK 08/07/23 [History Last Taken Unknown] Allergy/AdvReac Type Severity Reaction Status Date / Time No Known Allergies Allergy Verified 08/07/23 18:26 Surgical History History of cholecystectomy Social History Smoking Status: Current every day smoker tobacco type: e-cigarettes and smokeless tobacco substance use type: does not use ROS ROS ED Constitutional Constitutional ED: Denies chills or fever(s) Eyes Eyes: Denies discharge from eye(s) ENT ENT ED: Denies discharge from eye(s), rhinorrhea or sore throat Cardiovascular Cardiovascular: Reports racing heartbeat; Denies chest pain or palpitations Respiratory/Chest Respiratory/Chest: Denies cough or dyspnea Gastrointestinal Gastrointestinal: Reports abdominal pain; Denies diarrhea, nausea or vomiting Genitourinary Genitourinary ED: Denies dysuria Musculoskeletal Musculoskeletal: Reports extremity pain and myalgias; Denies back pain Integumentary Denies Abrasions or rash Neurologic Neurologic: Denies headache(s) or weakness Psychiatric Psychiatric: Denies anxiety or depression Allergic/Immunologic Allergic/Immunologic ED: Denies lip swelling or urticaria EXAM Physical Exam Const Vital Signs: 08/07/23 18:26 08/07/23 21:07 08/07/23 22:16 Temperature 97.6 F L Temperature Source Temporal Pulse Rate 131 H 118 H 121 H Respiratory Rate 18 16 16 Blood Pressure 154/98 H 149/81 H Blood Pressure Mean 116 103 Pulse Ox 97 99 98 Oxygen Delivery Method Room Air 08/07/23 22:49 Temperature Temperature Source Pulse Rate 99 Respiratory Rate 16 Blood Pressure 134/68 H Blood Pressure Mean 90 Pulse Ox 98 Oxygen Delivery Method Room Air Positive well nourished and well developed General Appearance ED: well developed Eyes EOMs intact bilaterally Chest Wall inspection of chest normal and palpation of chest normal Resp normal respiratory effort and clear to auscultation bilaterally Cardio Rate: tachycardic GI GI Narrative: Mild diffuse tenderness all patient. No guarding or rebound. Extremity Extremity Narrative: Muscle spasms palpated throughout the upper and lower extremities. Neuro oriented x3 Psych Mood & Affect: anxious Skin Skin Narrative: Diaphoretic. MDM MDM MDM Narrative Medical decision making narrative: Lab work been obtained per nursing protocol. The time of my examination I ordered 2 L of IV fluid, morphine, Zofran. Patient is currently on cardiac monitor technician. Lab Data Attestation: I reviewed the patient's lab results. Labs: Laboratory Results - last 24 hr 08/07/23 18:48 WBC 9.9 RBC 5.54 Hgb 17.3 H Hct 52.5 MCV 94.8 H MCH 31.2 MCHC 33.0 RDW Std Deviation 45.3 H RDW Coeff of Claudia 12.9 Plt Count 279 MPV 9.5 Immature Gran % (Auto) 0.500 Neut % (Auto) 66.1 Lymph % (Auto) 24.7 Taliaferro % (Auto) 7.9 Eos % (Auto) 0.4 Baso % (Auto) 0.4 Absolute Neuts (auto) 6.6 Absolute Lymphs (auto) 2.46 Nucleated RBC % 0 Sodium 138 Potassium 3.7 Chloride 104 Carbon Dioxide 22.0 Anion Gap 12 BUN 12 Creatinine 1.15 Estim Creat Clear Calc 107.16 Est GFR (MDRD) Af Amer 93 Est GFR (MDRD) Non-Af 77 BUN/Creatinine Ratio 10.4 Glucose 90 Calcium 9.5 Total Bilirubin 1.50 H AST 23 ALT 37 Alkaline Phosphatase 93 Total Protein 8.2 Albumin 4.1 Globulin 4.1 Albumin/Globulin Ratio 1.0 Treatment and Re-Evaluation :: CBC reveals normal white count at 9.9. Hemoglobin is concentrated at 17.3. Differential is unremarkable. Chemistry studies are normal with a BUN of 12 and a creatinine 1.15. LFTs significant for a total bili of 1.5. Patient declined IV morphine stating that he has a history of drug abuse and does not want this medication. He was given Toradol, Zofran, and Flexeril to help with muscle spasm. After 2 L of IV fluid symptoms are improving. Heart rate is now 95. Muscle spasms are improving, but not completely resolved at this time. He will be given 1 more liter of IV fluid. He has not yet had to urinate. This be set at oncoming physician with anticipation that he will be able to be discharged after third liter of fluid. Patient is comfortable this plan. Discharge Plan Triage Chief Complaint: Abd Pain ED Provider: Frannie Montague Dx/Rx/DC Orders Clinical Impression: Muscle spasm, Dehydration Instructions: ED Dehydration (Adult), ED Muscle Spasm Prescriptions: No Action NK Primary Care Provider: Care Physician,No Primary Referrals: Care Physician,No Primary [Primary Care Provider] - Disposition Disposition: Home, Self Care
[2023-08-07] MEDS: 0.9% Normal Saline (1000mL) 1,000 ML 1000 ML IV ×2 (21:49→22:32)
[2023-08-07] MEDS: Ondansetron 4 MG/2 ML Vial IV (21:49)
[2023-08-07] MEDS: Ketorolac 30 MG/ML Syringe IV (21:50)
[2023-08-07] MEDS: cycloBENZAPRine HCl 10 MG Tablet PO (22:04)
[2023-08-07 22:16] VITALS: BP 149/81; PULSE 121; RESP 16; O2SAT 98
[2023-08-07 22:49] VITALS: BP 134/68; PULSE 99; RESP 16; O2SAT 98
[2023-08-07] MEDS: 0.9% Normal Saline (1000mL) 1,000 ML 999 ML IV (23:24)
[2023-08-08 00:19] VITALS: BP 131/80; PULSE 90; RESP 16; O2SAT 98
== END 2023-08-08 00:27 | disposition home or self-care (01) ==
PROVIDERS: Emergency Provider Emergency Medicine; Visit Provider Emergency Medicine
DX: M62.838 Other muscle spasm (principal); E86.0 Dehydration; F17.220 Nicotine dependence, chewing tobacco, uncomplicated
CPT/HCPCS: 80053; 85025; 93005; 96361; 96374; 96375; 99285; J7030; A4216; J2405